=== PATIENT | female | born 1950 | race Caucasian/White ===

== ENCOUNTER → 2020-04-22 08:20 | Outpatient (BNVA) | payer MEDICARE, SELFPAY | PROVIDERS: Family Provider Nurse Practitioner Family; Visit Provider Nurse Practitioner Family | DX: I10 Essential (primary) hypertension (principal); E78.2 Mixed hyperlipidemia; E11.9 Type 2 diabetes mellitus without complications; E07.9 Disorder of thyroid, unspecified | CPT/HCPCS: 80053; 80061; 81001; 83036; 84443; 85025 ==

== ENCOUNTER → 2020-08-31 09:10 | Outpatient (BNVA) | payer MEDICARE, SELFPAY | PROVIDERS: Family Provider Nurse Practitioner Family; PCP Nurse Practitioner Family; Visit Provider Nurse Practitioner Family | DX: E11.9 Type 2 diabetes mellitus without complications (principal); I10 Essential (primary) hypertension; Z00.00 Encounter for general adult medical examination without abnormal findings | CPT/HCPCS: 80053; 83036; 85025 ==

== ENCOUNTER 2020-10-05 10:07 | Outpatient (CLI) | payer MEDICARE, SELFPAY ==
--- NOTE | 2020-10-05 10:13 | MM_ITS ---
WS: [id number] Bilateral screening digital mammogram, 10/05/2020 Clinical Data: SCREENING Comparison: 02/25/2019, 09/01/2016, 03/17/2015, 10/24/2012, 06/06/2011, 11/01/2010, 02/09/2009, 01/21/2008, . Findings: The breast parenchymal pattern shows fibroglandular tissue No spiculated masses or clustered calcific ations are seen. There are no secondary signs of carcinoma. MM/[id number] Impression: 1. Negative bilateral mammogram unchanged. 2. Recommend annual screening mammograms. BIRADS: 1-Negative FOLLOW UP: 1 Year Follow-up The CAD weight checker was used.
== END 2020-10-05 10:08 | disposition home or self-care (01) ==
LOC: RADSHAW 10:11
PROVIDERS: PCP Nurse Practitioner Family; Visit Provider Nurse Practitioner Family
DX: Z12.31 Encounter for screening mammogram for malignant neoplasm of breast (principal)
CPT/HCPCS: 77067

== ENCOUNTER → 2021-08-29 10:00 | Outpatient (BNVA) | payer MEDICARE, SELFPAY | PROVIDERS: PCP Nurse Practitioner Family; Visit Provider Nurse Practitioner Family | DX: E55.9 Vitamin D deficiency, unspecified (principal); E78.2 Mixed hyperlipidemia; I10 Essential (primary) hypertension; E11.9 Type 2 diabetes mellitus without complications | CPT/HCPCS: 80053; 80061; 81003; 82306; 83036; 84443; 85025 ==

== ENCOUNTER → 2021-09-11 11:00 | Outpatient (BNVA) | payer MEDICARE, SELFPAY | PROVIDERS: PCP Nurse Practitioner Family; Visit Provider Registered Nurse Neonatal Intensive Care | DX: N39.0 Urinary tract infection, site not specified (principal) | CPT/HCPCS: 81000 ==

== ENCOUNTER 2021-11-09 13:11 | Outpatient (CLI) | payer MEDICARE, SELFPAY ==
--- NOTE | 2021-11-09 13:30 | MM_ITS ---
WS: [id number] BILATERAL DIGITAL SCREENING MAMMOGRAPHY WITH CAD CLINICAL INFORMATION: Z12.31 - Encounter for screening mammogram for malignant ... HISTORY: Screening mammogram. Left breast soreness COMPARISON: October 05, 2020 TECHNIQUE: Bilateral CC and MLO views. FINDINGS: Scattered fibroglandular densities bilaterally. Biopsy marker left breast. Long-term stability 4 mm o void nodule subareolar left breast. No suspicious focal mass, asymmetry, calcifications, or network architect manager ural distortion. No evidence of malignancy. MM/[id number] IMPRESSION: BI-RADS: 2-Benign FOLLOW UP: 1 Year Follow-up Recommend return to annual screening mammography.
== END 2021-11-09 13:12 | disposition home or self-care (01) ==
LOC: RADSHAW 13:19
PROVIDERS: PCP Nurse Practitioner Family; Visit Provider Nurse Practitioner Family
DX: Z12.31 Encounter for screening mammogram for malignant neoplasm of breast (principal)
CPT/HCPCS: 77067

== ENCOUNTER → 2022-04-11 10:57 | Outpatient (BNVA) | payer MEDICARE, SELFPAY | PROVIDERS: PCP Nurse Practitioner Family; Visit Provider Nurse Practitioner | DX: K59.00 Constipation, unspecified (principal) | CPT/HCPCS: 74018 ==

== ENCOUNTER 2022-07-25 09:31 | Outpatient (CLI) | payer MEDICARE, SELFPAY ==
--- NOTE | 2022-07-25 10:00 | US_ITS ---
WS: [id number] Complete ABDOMINAL ULTRASOUND HISTORY: R10.9 - Unspecified abdominal pain COMPARISON: None available. Liver: 15.1 cm in length. Liver is normal size and echogenicity with no mass or intrahepatic dilatati on. Portal Vein: Normal hepatopetal flow with monophasic waveform. Gallbladder: Normally distended with no gallstones, wall thickening or pericholecystic fluid. Gallbladder wall thickness: 0.2 cm. Pancreas: Normal size and echogenicity. CBD: 0.5 cm. Right kidney: 9.8 cm x 5.4 cm x 4.0 cm. No mass, cortical thickening or hydronephrosis. 3 tiny amoun t of fluid in the central renal pelvis. Not considered hydronephrosis. Left kidney: 9.2 cm x 4.4 cm x 3.8 cm. No mass, cortical thickening or hydronephrosis. Spleen: Normal size and echogenicity. Abdominal aorta and IVC are within normal limits. No ascites. US/US abdomen complete* [id number] IMPRESSION: Normal complete abdomen ultrasound.
== END 2022-07-25 09:32 | disposition home or self-care (01) ==
LOC: RAD 09:32
PROVIDERS: PCP Nurse Practitioner Family; Visit Provider Nurse Practitioner
DX: R16.0 Hepatomegaly, not elsewhere classified (principal)
CPT/HCPCS: 76700

== ENCOUNTER 2022-08-28 18:25 | Observation (INO) | payer MEDICARE, SELFPAY ==
[2022-08-28 18:56] VITALS: BP 125/64; PULSE 73; RESP 16; TEMP 36.3; O2SAT 94
--- NOTE | 2022-08-28 19:58 | XRR_ITS ---
PROCEDURE INFORMATION: Exam: XR Chest Exam date and time: 08/28/2022 8:04 PM Age: 72 years old Clinical indication: Other: HTN TECHNIQUE: Imaging protocol: Radiologic exam of the chest. Views: 1 view. COMPARISON: CR XR chest 2V* [id number] 12/17/2015 3:48 PM FINDINGS: Lungs: The lungs are clear. Pleural spaces: Unremarkable. No pleural effusion. No pneumothorax. Heart/Mediastinum: Unremarkable. No cardiomegaly. Bones/joints: There is a chronic moderate thoracolumbar scoliosis. XR/XR chest 1V portable [id number] IMPRESSION: No change, lungs clear
[2022-08-28 20:13] LABS: Hematocrit 40.5 % (37.0-47.0); Hemoglobin 12.6 g/dL (11.5-15.3); Mean Corpuscular HGB Conc 31.1 g/dL (30.0-36.0); Mean Corpuscular Hemoglobin 30.4 pg (28.0-34.0); Mean Corpuscular Volume 97.8 fl (81-99); Mean Platelet Volume 9.9 fL (7.4-10.4); Platelet Count 256 10^3/cmm (130-400); Positive M 1; Red Blood Count 4.14 10^6/uL (4.1-5.3)
[2022-08-28 20:17] VITALS: BP 141/95; PULSE 71; RESP 16; O2SAT 94
--- NOTE | 2022-08-28 20:23 | ED_ITS ---
HPI - Recheck/Abnormal Lab/Rx General: Chief Complaint: Recheck/Abnormal Lab/Rx Stated Complaint: Low white blood cell count Time Seen by Provider: 08/28/22 19:53 Source: patient Mode of arrival: ambulatory Limitations: no limitations History of Present Illness: 72-year-old female who states she had her labs drawn today for a routine checkup. She states she was called back and told that she had a white count of 78 and told to come the ER states she has been feeling pretty normal some slight weakness no history of cancer she denies any vomiting or diarrhea denies any pain. No history of a leukocytosis in the past. Review of Systems Const: Denies: fever(s), chills, body aches or change in appetite Eyes: Denies: blurry vision or eye discomfort ENMT: Denies: throat pain or dental pain Card: Denies: chest pain Resp: Denies: dyspnea GI: Denies: abdominal pain, nausea, vomiting or diarrhea : Denies: dysuria Musc: Denies: neck pain or back pain Skin/Breast: Denies: rash Neuro: Denies: headache(s) Psych: Denies: depression Fortino/Lymph: Denies: easy bruising All/Imm: Denies: urticaria PFSH ED PFSH: Medical History Anxiety and depression Breast cancer screening by mammogram Colon cancer screening COPD (chronic obstructive pulmonary disease) 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 This causes her pain. Diabetes Essential hypertension Influenza vaccine needed Mixed hyperlipidemia Vitamin D deficiency Social History Smoking and tobacco status: never smoked Second hand smoke exposure: No Physical Exam Const: COMMON NORMALS: no acute distress, patient oriented x3 and healthy appearing HENMT: COMMON NORMALS: normocephalic and atraumatic HEAD & SCALP: normocephalic and atraumatic Eye: COMMON NORMALS: Equal, round and reactive pupils present and EOMs intact bilaterally PUPIL: Yes Equal, round and reactive pupils present Neck/C-Spine: COMMON NORMALS: full ROM and supple Chest: COMMONS NORMALS: normal inspection of the chest and normal palpation of entire chest wall Resp: COMMON NORMALS: normal respiratory effort, No retractions, No use of accessory muscles and clear to auscultation bilaterally AUSCULTATION: clear to auscultation bilaterally Cardio: COMMON NORMALS: regular rate, regular rhythm and No murmurs present (Cardio) RATE: regular rate RHYTHM: regular rhythm GI: COMMON NORMALS: Normal to inspection, nondistended, normoactive bowel sounds present, Soft to palpation, non-tender and no masses PALPATION: Yes Soft to palpation Extremity: COMMON NORMALS: normal to inspection and full ROM Neuro: COMMON NORMALS: patient oriented x3, moves all extremities and no focal motor deficits Psych: COMMON NORMALS: mental status grossly normal, Normal thought process present and cooperative THOUGHT PROCESS: Normal thought process present Skin: COMMON NORMALS: no rashes or lesions noted and no wounds GENERAL SKIN EXAM: no rashes or lesions noted Course Vital Signs: Vital signs: Vital Signs Temperature 97.4 F L 08/28/22 18:56 Pulse Rate 61 08/28/22 21:01 Respiratory Rate 18 08/28/22 21:01 Blood Pressure 124/64 08/28/22 21:01 Pulse Oximetry 95 08/28/22 21:01 Oxygen Delivery Me thod 08/28/22 18:56 MDM - Recheck/Abnormal Lab/Rx Medical Decision Making Patient presents here with leukocytosis is quite severe in nature worried possible CML patient is well-appearing here fairly symptomatic spoke to hospitalist will admit for observation for peripheral smear and further work-up. Lab Data : 08/28/22 20:00 08/28/22 20:00 Radiology Impressions Chest X-Ray 08/28/22 19:58 IMPRESSION: No change, lungs clear Laboratory Results WBC 76.4 10^3/uL (4.0-10.0) H* 08/28/22 20:00 RBC 4.14 10^6/uL (4.1-5.3) 08/28/22 20:00 Hgb 12.6 g/dL (11.5-15.3) 08/28/22 20:00 Hct 40.5 % (37.0-47.0) 08/28/22 20:00 MCV 97.8 fl (81-99) 08/28/22 20:00 MCH 30.4 pg (28.0-34.0) 08/28/22 20:00 MCHC 31.1 g/dL (30.0-36.0) 08/28/22 20:00 RDW 13.0 % (12.1-15.1) 08/28/22 20:00 Plt Count 256 10^3/cmm (130-400) 08/28/22 20:00 MPV 9.9 fL (7.4-10.4) 08/28/22 20:00 Lymph % (Auto) Not Reportable 08/28/22 20:00 [place] % (Auto) Not Reportable 08/28/22 20:00 Lymph # (Auto) Not Reportable 08/28/22 20:00 [place] # (Auto) Not Reportable 08/28/22 20:00 Total Counted 100 (0-100) 08/28/22 20:00 Atypical Lymphs % 4.0 % (0-5) 08/28/22 20:00 Absolute Neutrophils 6.1 10^3/cmm (1.4-6.5) 08/28/22 20:00 Segmented Neutrophils 8 % 08/28/22 20:00 Abs Segm Neuts (Man) 6.1 10/cmm (1.6-7.1) 08/28/22 20:00 Band Neutrophils 0.0 % 08/28/22 20:00 Abs Band Neuts (Man) 0.0 10^3/cmm (0.0-1.2) 08/28/22 20:00 Absolute Lymphocytes 68.8 10^3/cmm (1.2-3.4) H 08/28/22 20:00 Lymphocytes (Manual) 86 % 08/28/22 20:00 Monocytes (Manual) 2.0 % 08/28/22 20:00 Absolute Monocytes 1.5 10^3/cmm (0.1-0.6) H 08/28/22 20:00 Eosinophils (Manual) 0 % 08/28/22 20:00 Absolute Eosinophils 0.0 10^3/cmm (0.0-0.7) 08/28/22 20:00 Basophils (Manual) 0.0 % 08/28/22 20:00 Absolute Basophils 0.0 10^3/cmm (0.0-0.2) 08/28/22 20:00 Smudge Cells 2+ H 08/28/22 20:00 Platelet Estimate Normal (Normal) 08/28/22 20:00 PT 13.30 SECONDS (12.1-14.9) 08/28/22 20:00 INR 0.99 (0.8-1.2) 08/28/22 20:00 Sodium 136 mmol/L (136-145) 08/28/22 20:00 Potassium 4.1 mmol/L (3.5-5.1) 08/28/22 20:00 Chloride 101 mmol/L (98-107) 08/28/22 20:00 Carbon Dioxide 24 mmol/L (22-29) 08/28/22 20:00 Anion Gap 15.1 (5-19) 08/28/22 20:00 BUN 22 mg/dL (8-23) 08/28/22 20:00 Creatinine 0.8 mg/dL (0.5-0.9) 08/28/22 20:00 GFR Calculation Not Reportable 08/28/22 20:00 Glucose 147 mg/dL (65-115) H 08/28/22 20:00 Calculated Osmolality 288 mOsm/kg (285-295) 08/28/22 20:00 Calcium 9.3 mg/dL (8.5-10.5) 08/28/22 20:00 Total Bilirubin 0.2 mg/dL (0.15-1.2) 08/28/22 20:00 AST 15 U/L (0-32) 08/28/22 20:00 ALT 17 U/L (0-33) 08/28/22 20:00 Alkaline Phosphatase 79 U/L (35-105) 08/28/22 20:00 Total Protein 6.8 g/dL (6.6-8.7) 08/28/22 20:00 Albumin 3.9 g/dL (3.5-5.2) 08/28/22 20:00 Globulin 2.9 g/dL (1.3-4.6) 08/28/22 20:00 Discharge Plan Discharge Patient Disposition: Placed in Observation Clinical Impression: Leukocytosis Condition: Stable Prescriptions: No Action albuterol sulfate 90 mcg/actuation HFA aerosol inhaler INHALATION (DME) blood-glucose meter Kit See Rx Instructions .Route Qty: 30 11RF Rx Instructions: As directed (DME) blood sugar diagnostic Strip See Rx Instructions .ROUTE .MEDSUPPLY Qty: 50 5RF Rx Instructions: As directed lisinopril 10 mg tablet See Rx Instructions .ROUTE .COMPLEX Qty: 90 3RF Dose Instruction: Take 1 tablet by mouth once daily Rx Instructions: Take 1 tablet by mouth once daily citalopram 20 mg tablet See Rx Instructions .ROUTE .COMPLEX Qty: 90 2RF Dose Instruction: TAKE 1 TABLET BY MOUTH ONCE DAILY FOR 90 DAYS. TAKE WITH 10 MG TABLET FOR 30 MG DAILY DOSING. Rx Instructions: TAKE 1 TABLET BY MOUTH ONCE DAILY FOR 90 DAYS. TAKE WITH 10 MG TABLET FOR 30 MG DAILY DOSING. pravastatin 40 mg tablet See Rx Instructions .ROUTE .COMPLEX Qty: 90 1RF Dose Instruction: Take 1 tablet by mouth once daily Rx Instructions: Take 1 tablet by mouth once daily citalopram 10 mg tablet See Rx Instructions .ROUTE .COMPLEX Qty: 90 1RF Dose Instruction: TAKE 1 TABLET BY MOUTH ONCE DAILY FOR 90 DAYS. TAKE WITH 20 MG FOR 30 MG DOSING. Rx Instructions: TAKE 1 TABLET BY MOUTH ONCE DAILY FOR 90 DAYS. TAKE WITH 20 MG FOR 30 MG DOSI NG. metformin 850 mg tablet See Rx Instructions .ROUTE .COMPLEX Qty: 180 1RF Dose Instruction: Take 2 tablets by mouth once daily Rx Instructions: Take 2 tablets by mouth once daily Coding Level of Care Code ED Supervisor Cereal for [facility] Fwd Exam Comprehensive
[2022-08-28 20:32] LABS: INR 0.99 (0.8-1.2)
[2022-08-28 20:37] LABS: Alanine Aminotransferase 17 U/L (0-33); Albumin Level 3.9 g/dL (3.5-5.2); Alkaline Phosphatase 79 U/L (35-105); Anion Gap 15.1 (5-19); Aspartate Amino Transferase 15 U/L (0-32); Blood Urea Nitrogen 22 mg/dL (8-23); Calcium 9.3 mg/dL (8.5-10.5); Carbon Dioxide 24 mmol/L (22-29); Chloride 101 mmol/L (98-107); Globulin 2.9 g/dL (1.3-4.6); Glucose 147 mg/dL (65-115); Osmolality Calculated 288 mOsm/kg (285-295); Potassium 4.1 mmol/L (3.5-5.1); Sodium 136 mmol/L (136-145); Total Bilirubin 0.2 mg/dL (0.15-1.2); Total Protein 6.8 g/dL (6.6-8.7)
[2022-08-28 21:01] VITALS: BP 124/64; PULSE 61; RESP 18; O2SAT 95
[2022-08-28 21:25] LABS: Platelet Estimate Normal (Normal)
[2022-08-28 21:26] LABS: Absolute Neutrophil 6.1 10^3/cmm (1.4-6.5); Absolute Segmented Neutrophil 6.1 10/cmm (1.6-7.1); Eosinophils 0 %; Lymphocytes 86 %; Monocytes Absolute 1.5 10^3/cmm (0.1-0.6); Segmented Neutrophils 8 %; Smudge Cells 2+; Total Cells Counted 100 (0-100)
[2022-08-28 21:27] LABS: Lymphocytes Absolute 68.8 10^3/cmm (1.2-3.4)
[2022-08-28 21:34] LABS: White Blood Count 76.4 10^3/uL (4.0-10.0)
[2022-08-28 21:42] LABS: Bilirubin Urine Negative (Negative); Blood Urine Moderate (Negative); Glucose Urine UA Negative (Normal); Ketones Urine Negative (Negative); Leukocyte Esterase Urine Negative (Negative); Nitrate Urine Negative; Protein Urine Negative (Negative); Urine Appearance Clear (CLEAR); Urine Color Yellow (Yellow); Urobilinogen Urine 0.2 mg/dL (Negative); pH Urine 5.5 (5-7)
[2022-08-28 21:49] LABS: Add Urine Microscopic? YES
[2022-08-28 22:19] VITALS: BP 126/80; PULSE 59; RESP 16; O2SAT 98
[2022-08-28 22:29] LABS: Add Urine Culture? No; Bacteria Urine TRACE /hpf; Squamous Epithelial Cell Urine 0-4 /hpf (0-5); WBC Urine 0-4 /hpf (0-5)
[2022-08-28 22:32] LABS: Lactate (Lactic Acid level) 1.9 mmol/L (0.5-2.2)
[2022-08-28 22:35] VITALS: BP 130/76; PULSE 59; RESP 17; TEMP 35.9; O2SAT 95
[2022-08-28 22:41] VITALS: BMI 28.6
[2022-08-28 23:53] VITALS: BP 104/58; PULSE 59; RESP 17; O2SAT 95
--- NOTE | 2022-08-29 01:30 | PM.HP ---
Providers/Chief Complaint Admitting Physician: Alia Mari MD Chief Complaint: High White Cell Count History of Present Illness Zoraida Dia is a 72 year old female with PMH COPD, does not use inhalers, HTN sent from PCP's office due to elevated WBC count. Patient had routine blood work today for her annual physcal which showed WBC count >70,000. Patient reports feeling asymptomatic overall. Denies any fever, chills, weight loss,change in appetite or night sweats. Her recently dies from leukemia, so she states she may not have been paying attention to her symptoms. No c/o recent URIs. No c/o chest pain, dyspnea, palpitations, abdominal pain, nausea or vomiting. She had abdominal pain in June which she thought was related to constipation. Abdomen x rays ruled out obstruction. Hepatomegaly was noted for which f/up US was performed and returned normal. Symptoms are now resolved. she has never had a colonoscopy. Gets scheduled mammograms due to family h/o breast cancer. no personal history of malignancy. She has not noted any LAD. Review of Systems General: Reports: 10 or more systems reviewed and unremarkable except in HPI and below Const: Denies: fever(s), chills or body aches Eyes: Denies: change in vision, blurry vision or photophobia ENMT: Reports: hoarseness; Denies: throat pain, enlarged tonsils, odynophagia or nasal congestion Card: Denies: chest pain, palpitations, irregular heart rhythm, edema, swelling of feet/ankles, lightheadedness, pre-syncope, dyspnea on exertion or orthopnea Resp: Denies: dyspnea, productive cough, non-productive cough, wheezing, stridor, pain on inspiration, change in phlegm color, hemoptysis or chest congestion GI: Denies: abdominal pain, nausea, vomiting, hematemesis, coffee ground emesis, dysphagia, heartburn, diarrhea, constipation, GI cramping, change in stool character, hematochezia or melena : Denies: flank pain, difficulty voiding, dysuria, urinary frequency, urinary urgency, urinary hesitancy or hematuria Musc: Denies: neck pain, back pain, extremity pain, joint swelling, joint warmth or deformity Neuro: Denies: headache(s), numbness in extremities, weakness in extremities, sensory changes, difficulty walking, frequent falls, dizziness, vertigo, behavioral changes, Slurred speech present or seizure-like activity Psych: Denies: anxiety, depression, suicidal ideation or homicidal ideation Endo: Denies: polyuria, polydipsia, tired all the time, cold intolerance or hot flashes Fortino/Lymph: Denies: easy bruising or easy bleeding Medications/Allergies Home Medications Medication Instructions Recorded Confirmed Last Taken Type blood sugar diagnostic #50 ea 08/05/20 08/29/22 Unknown Rx blood-glucose meter #30 ea 08/31/21 08/29/22 Unknown Rx citalopram 20 mg tablet (Celexa) 20 mg PO DAILY 08/29/22 08/29/22 08/28/22 10:00 History lisinopril 10 mg tablet 10 mg PO DAILY 08/29/22 08/29/22 08/28/22 10:00 History metformin 850 mg tablet 850 mg PO BID 08/29/22 08/29/22 08/28/22 18:00 History Allergies Allergy/AdvReac Type Severity Reaction Status Date / Time loratadine [From Claritin] AdvReac sleeplessne Verified 08/28/22 19:03 ss PFSH Acute PFSH: Medical History Anxiety and depression Breast cancer screening by mammogram Colon cancer screening COPD (chronic obstructive pulmonary disease) 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 This causes her pain. Diabetes Essential hypertension Influenza vaccine needed Mixed hyperlipidemia Vitamin D deficiency Social History Smoking and tobacco status: never smoked Second hand smoke exposure: No Vitals/I&O/Wt Last Vital Signs Temp 96.7 F L 08/28/22 22:35 Pulse 59 L 08/28/22 23:53 Resp 17 08/28/22 23:53 BP 104/58 08/28/22 23:53 Pulse Ox 95 08/28/22 23:53 O2 Del Method 08/28/22 22:41 Weight last 48 hrs Weight 75.75 kg Physical Exam Narrative: General: No acute distress, AO x3 HEENT: PERRLA, pupils bilaterally equal and reactive, pallors not present. Left cervical chain 2-3 lymph nodes palpable approx 1 cm. Chest: Normal vesicular breath sounds, no added sounds, equal good air entry bilaterally CVS: S1-S2 regular, no murmurs, no tachycardia, no gallops, no rubs Abdomen: Soft, nontender, no organomegaly, bowel sounds present Neuro: No focal deficits, no facial deformity, AO x3, power 5/5 in all limbs Extremities: no pedal edema or clubbing. Data : 08/28/22 20:00 08/29/22 05:07 Micro: Microbiology 08/28/22 22:02 Blood Culture - Preliminary Blood SPECIMEN COLLECTED 08/28/22 22:02 Blood Culture - Preliminary Blood SPECIMEN COLLECTED A&P Assessment and plan (1) Atypical lymphocytosis: Patient with incidentally noted elevated WBC count at >70,000 with no prior h/o hematological malignancy. She is asymptomatic. denies any recent c/o fever, chills, URI type symptoms Less likely to be viral process such as EBV, CMV, however will check serologies. On automated differential, 69.9% absolute lymphocytosis with 2+ smudge cells. Suspect hematological malignancy such as CLL vs B cell lymphoma. Check peripheral smear and peripheral blood flow cytomtery. From one year ago in 08/2021, WBC count was at 28.5 To be discussed with hem/onc in am regarding other expedited w/up including BM aspirate, imaging- CT vs PET/CT Plan Continue home medications incl metformin and lisinopril Attestations Medical Necessity Statement*: less than 2 midnight stay for evaluation of asymptomtic lymphocytosis , possible hematological malignancy Coding Level of Care Code Acute Vessel [place] for [facility] Fwd Diagnoses Atypical lymphocytosis D72.820
[2022-08-29 04:00] VITALS: BP 94/55; PULSE 54; RESP 17; TEMP 36.6; O2SAT 95
[2022-08-29 04:50] LABS: LAB Peripheral Smear Sent for Review
[2022-08-29 05:48] LABS: Alanine Aminotransferase 18 U/L (0-33); Albumin Level 3.9 g/dL (3.5-5.2); Alkaline Phosphatase 71 U/L (35-105); Anion Gap 13.8 (5-19); Aspartate Amino Transferase 13 U/L (0-32); Blood Urea Nitrogen 18 mg/dL (8-23); Calcium 9.4 mg/dL (8.5-10.5); Carbon Dioxide 28 mmol/L (22-29); Chloride 103 mmol/L (98-107); Globulin 2.5 g/dL (1.3-4.6); Glucose 114 mg/dL (65-115); Osmolality Calculated 293 mOsm/kg (285-295); Potassium 4.8 mmol/L (3.5-5.1); Sodium 140 mmol/L (136-145); Total Bilirubin 0.4 mg/dL (0.15-1.2); Total Protein 6.4 g/dL (6.6-8.7)
[2022-08-29 05:53] LABS: Monoscreen Negative (Negative)
[2022-08-29 07:49] VITALS: BP 106/52; PULSE 55; RESP 14; TEMP 36.7; O2SAT 94
[2022-08-29] MEDS: pantoprazole DR 40 mg Tablet PO (08:04)
--- NOTE | 2022-08-29 11:06 | PC.CHAP ---
Pastoral Care Encounter/Spiritual Assessment Type of Contact [] Declined questioned documents examiner visit [] Patient/Family/Request visit [] Outpatient visit [] Follow-up visit [] Physician referral [] Code/Alert [x] Routine visit [] Staff referral [] Actively dying [] Patient sleeping [] Family support [] [] Out of room [] Palliative care [] [] Receiving care in room [] Pre-surgical visit [] Trauma [] Long length of stay [] ICU visit [] Other: Relational/Emotional Strength [x] Patient feels connected with others/family/visitors/staff [] Distress [] Loneliness/isolation [] Abandonment Spirituality of Patient []x Person of Dorinda [x] Attends Congregation of their Dorinda [x] Believes in Prayer [] Reads Bible or Yazidi materials [] There are Spiritual issues to be addressed 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 Interventions [x] Prayer [x] Active listening [] Non-anxious presence [x] Spiritual/emotional support [] Crisis/trauma care [] Spiritual counseling [] Bereavement support [] Provided bereavement packet [] Provided Bible/devotional materials [] Provided toy/stuffed animal, coloring book to patient or family member [] Provided Communion [] Anointing/[place] [] Salvation [x] Completed spiritual assessment [] Other: Impact on Illness or Injury [] Angry [] Fearful [] Anxious [] Often cries [] Exhaustion [] Unable to work [] Unable to attend presybeterian [] Unable to walk/stand [] Unable to read [] Unable to drive [] Unable to eat/drink [] Unable to sleep [] Unable to be with family [] Patient intubated [] Other: Summary Time spent with patient 10 min
[2022-08-29 11:53] VITALS: BP 135/76; PULSE 59; RESP 16; TEMP 36.6; O2SAT 94
--- NOTE | 2022-08-29 12:28 | P.DS_ITS ---
Discharge Providers Date of Admission: 08/28/22 22:41 Date of Discharge: August 29, 2022 Attending Provider at Admission: Alia Mari MD Attending Provider at Discharge: Moses You MD Diagnoses at Discharge Discharge Diagnosis (1) Atypical lymphocytosis: Status: Acute Reason for Visit Reason for Visit: High White Cell Count Hospital Course Hospital Course Zoraida Dia is a 72 year old female with PMH COPD, does not use inhalers, HTN sent from PCP's office due to elevated WBC count. Patient had routine blood work today for her annual physcal which showed WBC count >70,000. Patient reports feeling asymptomatic overall. Denies any fever, chills, weight loss,change in appetite or night sweats. Her recently from leukemia, so she states she may not have been paying attention to her symptoms. No c/o recent URIs. No c/o chest pain, dyspnea, palpitations, abdominal pain, nausea or vomiting. S he had abdominal pain in June which she thought was related to constipation. Abdomen x rays ruled out obstruction. Hepatomegaly was noted for which f/up US was performed and returned normal. Symptoms are now resolved. she has never had a colonoscopy. Gets scheduled mammograms due to family h/o breast cancer. no personal history of malignancy. She has not noted any LAD. Patient was admitted for further evaluation and management. Flow cytometry for leukemia lymphoma along with serology for CMV and EBV were sent out. Care were discussed in detail with oncology. As patient's hemoglobin and platelet count has remained stable she has been discharged hemodynamically stable condition after specific blood work has been sent out with advised to follow-up with oncology as an outpatient. Care were discussed in detail with the patient and she was agreeable. Physical Exam Narrative: General: No acute distress, AO x3 HEENT: PERRLA, pupils bilaterally equal and reactive, pallors not present. Left cervical chain 2-3 lymph nodes palpable approx 1 cm. Chest: Normal vesicular breath sounds, no added sounds, equal good air entry bilaterally CVS: S1-S2 regular, no murmurs, no tachycardia, no gallops, no rubs Abdomen: Soft, nontender, no organomegaly, bowel sounds present Neuro: No focal deficits, no facial deformity, AO x3, power 5/5 in all limbs Extremities: no pedal edema or clubbing. Discharge Data Studies Completed and Pending Completed Studies During Hospitalization Category Date Time Status CXRP [XR chest 1V portable [id number]] Stat Exams 08/28/22 19:58 Completed Pending at discharge Category Date Time Status Blood Culture Stat Lab 08/28/22 22:02 Results CMV IGG&IGM Panel Routine Lab 08/29/22 05:07 Received Complete Blood Count w/Auto AM LABS Lab 08/30/22 04:00 Ordered EBV IGG & IGM Routine Lab 08/29/22 05:07 Received Radiology Impressions Chest X-Ray 08/28/22 19:58 IMPRESSION: No change, lungs clear Laboratory Results WBC 76.4 10^3/uL (4.0-10.0) H* 08/28/22 20:00 RBC 4.14 10^6/uL (4.1-5.3) 08/28/22 20:00 Hgb 12.6 g/dL (11.5-15.3) 08/28/22 20:00 Hct 40.5 % (37.0-47.0) 08/28/22 20:00 MCV 97.8 fl (81-99) 08/28/22 20:00 MCH 30.4 pg (28.0-34.0) 08/28/22 20:00 MCHC 31.1 g/dL (30.0-36.0) 08/28/22 20:00 RDW 13.0 % (12.1-15.1) 08/28/22 20:00 Plt Count 256 10^3/cmm (130-400) 08/28/22 20:00 MPV 9.9 fL (7.4-10.4) 08/28/22 20:00 Lymph % (Auto) Not Reportable 08/28/22 20:00 [place] % (Auto) Not Reportable 08/28/22 20:00 Lymph # (Auto) Not Reportable 08/28/22 20:00 [place] # (Auto) Not Reportable 08/28/22 20:00 Total Counted 100 (0-100) 08/28/22 20:00 Atypical Lymphs % 4.0 % (0-5) 08/28/22 20:00 Absolute Neutrophils 6.1 10^3/cmm (1.4-6.5) 08/28/22 20:00 Segmented Neutrophils 8 % 08/28/22 20:00 Abs Segm Neuts (Man) 6.1 10/cmm (1.6-7.1) 08/28/22 20:00 Band Neutrophils 0.0 % 08/28/22 20:00 Abs Band Neuts (Man) 0.0 10^3/cmm (0.0-1.2) 08/28/22 20:00 Absolute Lymphocytes 68.8 10^3/cmm (1.2-3.4) H 08/28/22 20:00 Lymphocytes (Manual) 86 % 08/28/22 20:00 Monocytes (Manual) 2.0 % 08/28/22 20:00 Absolute Monocytes 1.5 10^3/cmm (0.1-0.6) H 08/28/22 20:00 Eosinophils (Manual) 0 % 08/28/22 20:00 Absolute Eosinophils 0.0 10^3/cmm (0.0-0.7) 08/28/22 20:00 Basophils (Manual) 0.0 % 08/28/22 20:00 Absolute Basophils 0.0 10^3/cmm (0.0-0.2) 08/28/22 20:00 Smudge Cells 2+ H 08/28/22 20:00 Platelet Estimate Normal (Normal) 08/28/22 20:00 PT 13.30 SECONDS (12.1-14.9) 08/28/22 20:00 INR 0.99 (0.8-1.2) 08/28/22 20:00 Sodium 140 mmol/L (136-145) 08/29/22 05:07 Potassium 4.8 mmol/L (3.5-5.1) 08/29/22 05:07 Chloride 103 mmol/L (98-107) 08/29/22 05:07 Carbon Dioxide 28 mmol/L (22-29) 08/29/22 05:07 Anion Gap 13.8 (5-19) 08/29/22 05:07 BUN 18 mg/dL (8-23) 08/29/22 05:07 Creatinine 0.8 mg/dL (0.5-0.9) 08/29/22 05:07 GFR Calculation Not Reportable 08/29/22 05:07 Glucose 114 mg/dL (65-115) 08/29/22 05:07 Calculated Osmolality 293 mOsm/kg (285-295) 08/29/22 05:07 Lactate 1.9 mmol/L (0.5-2.2) 08/28/22 22:04 Calcium 9.4 mg/dL (8.5-10.5) 08/29/22 05:07 Total Bilirubin 0.4 mg/dL (0.15-1.2) 08/29/22 05:07 AST 13 U/L (0-32) 08/29/22 05:07 ALT 18 U/L (0-33) 08/29/22 05:07 Alkaline Phosphatase 71 U/L (35-105) 08/29/22 05:07 Total Protein 6.4 g/dL (6.6-8.7) L 08/29/22 05:07 Albumin 3.9 g/dL (3.5-5.2) 08/29/22 05:07 Globulin 2.5 g/dL (1.3-4.6) 08/29/22 05:07 Urine Color Yellow (Yellow) 08/28/22 20:11 Urine Appearance Clear (CLEAR) 08/28/22 20:11 Urine pH 5.5 (5-7) 08/28/22 20:11 Ur Specific [place] 1.020 (1.005-1.030) 08/28/22 20:11 Urine Protein Negative (Negative) 08/28/22 20:11 Urine Glucose (UA) Negative (Normal) 08/28/22 20:11 Urine Ketones Negative (Negative) 08/28/22 20:11 Urine Blood Moderate (Negative) A 08/28/22 20:11 Urine Nitrate Negative 08/28/22 20:11 Urine Bilirubin Negative (Negative) 08/28/22 20:11 Urine Urobilinogen 0.2 mg/dL (Negative) 08/28/22 20:11 Ur Leukocyte Esterase Negative (Negative) 08/28/22 20:11 Urine RBC 10-15 /hpf (0-2) H 08/28/22 20:11 Urine WBC 0-4 /hpf (0-5) H 08/28/22 20:11 Ur Squamous Epith Cells 0-4 /hpf (0-5) H 08/28/22 20:11 Amorphous Sediment Not Reportable 08/28/22 20:11 Urine Bacteria Trace /hpf (NONE) 08/28/22 20:11 Leuk/Lym Spec Type Cancelled 08/29/22 05:07 Leuk/Lym Clinical Info Cancelled 08/29/22 05:07 Leuk/Lymph Viability Cancelled 08/29/22 05:07 Leuk/Lym Sample Descrip Cancelled 08/29/22 05:07 Leuk/Lym # of Markers Cancelled 08/29/22 05:07 Leuk/Lym Markers Cancelled 08/29/22 05:07 Leuk/Lym Gating Strategy Cancelled 08/29/22 05:07 Leuk/Lym Interpretation Cancelled 08/29/22 05:07 Monoscreen Negative (Negative) 08/29/22 05:07 Vitals Last Vital Signs Temp 97.9 F 08/29/22 11:53 Pulse 59 L 08/29/22 11:53 Resp 16 08/29/22 11:53 BP 135/76 08/29/22 11:53 Pulse Ox 94 08/29/22 11:53 O2 Del Method 08/29/22 11:53 Discharge Plan Discharge Patient Disposition: Home Condition: Stable Prescriptions: New pantoprazole 40 mg Tablet,Delayed Release (Dr/Ec) 40 mg PO DAILY Qty: 30 0RF Continued (DME) blood-glucose meter Kit See Rx Instructions .Route Qty: 30 11RF Rx Instructions: As directed (DME) blood sugar diagnostic Strip See Rx Instructions .ROUTE .MEDSUPPLY Qty: 50 5RF Rx Instructions: As directed metformin 850 mg tablet 850 mg PO BID Celexa 20 mg tablet 20 mg PO DAILY lisinopril 10 mg tablet 10 mg PO DAILY Discharge Orders: Discharge Order (Routine); Ordered 08/29/22 Ordered By: Moses You Referrals: Donell Holley MD [Hospitalist] - 7-10 days Discharge Diet: Cardiac Discharge Activity: Resume usual activity and Increase activity as tolerated Patient Instructions: Opioid Safety Activity Restrictions/Additional Instructions: Please follow-up with Dr. Holley within next 1 week for further evaluation and management for leukocytosis to rule out CLL Discharge Attestations Time Spent in Discharge Care*: greater than 30 min Specific Discharge Activities: educating patient, discussing with pcp/other providers, discussing with case briefer/social workers/dc planners, documenting/other paperwork and evaluating patient/reviewing data Status at Discharge: Cognitive status at discharge: cognitively intact , Behavioral status at discharge: cooperative , Functional status at discharge: independent ambulation , Overall status at discharge: patient is back to baseline Quality Metrics Clinical Quality Measures [ No reported AMI, CVA or VTE this stay] Coding Level of Care Code Acute Chg FW DC note Diagnoses Atypical lymphocytosis D72.820
[2022-08-29 14:48] VITALS: BP 135/76; PULSE 59; RESP 16; TEMP 36.6; O2SAT 94
[2022-08-30 14:13] LABS: Cytomegalovirus Antibody (IGG) <0.60 U/mL; Cytomegalovirus Antibody (IGM) <30.00 AU/mL
[2022-08-31 07:58] LABS: Leukemia Profile (BBPL) See Report; Lymphoma Profile (BBPL) See Report
[2022-08-31 12:52] LABS: EBV IGG TEST >750.00 U/mL; EBV Nuclear AG <18.00 U/mL
== END 2022-08-29 03:00 | disposition home or self-care (01) ==
LOC: ER 21:50 → MEDSURG 23:13
PROVIDERS: Admitting Provider Student in an Organized Health Care Education/Training Program; Emergency Provider Emergency Medicine; Visit Provider Student in an Organized Health Care Education/Training Program
DX: D72.820 Lymphocytosis (symptomatic) (principal); J44.9 Chronic obstructive pulmonary disease, unspecified; I10 Essential (primary) hypertension; E11.9 Type 2 diabetes mellitus without complications; E78.2 Mixed hyperlipidemia; Z79.84 Long term (current) use of oral hypoglycemic drugs
CPT/HCPCS: 36415; 71045; 80053; 80061; 81001; 83036; 83605; 84443; 85007; 85025; 85610; 86308; 86664; 86665; 87040; 88184; 88185; 99285; G0378

== ENCOUNTER → 2022-08-29 04:45 | Outpatient (BNVA) | payer MEDICARE, SELFPAY | PROVIDERS: Family Provider Nurse Practitioner Family; PCP Nurse Practitioner Family; Visit Provider Nurse Practitioner Family | DX: E11.9 Type 2 diabetes mellitus without complications (principal); I10 Essential (primary) hypertension; Z00.00 Encounter for general adult medical examination without abnormal findings | CPT/HCPCS: 80503 ==

== ENCOUNTER 2022-09-07 14:23 | Oncology outpatient (recurring) (ONCR) | payer MEDICARE, SELFPAY | END 2022-09-25 23:59 | disposition home or self-care (01) | PROVIDERS: PCP Nurse Practitioner Family; Visit Provider Internal Medicine Medical Oncology | DX: C91.10 Chronic lymphocytic leukemia of B-cell type not having achieved remission (principal); Z87.891 Personal history of nicotine dependence | CPT/HCPCS: 99204 ==

== ENCOUNTER 2023-01-31 09:45 | Outpatient (CLI) | payer MEDICARE, SELFPAY ==
--- NOTE | 2023-01-31 09:58 | MM_ITS ---
WS: [id number] BILATERAL SCREENING DIGITAL TOMOSYNTHESIS MAMMOGRAM WITH CAD HISTORY: SCREENING COMPARISON: 11/09/2021 and 10/05/2020 Bilateral CC and MLO views with tomosynthesis and synthetic mammography submitted. Computer aided det ection analyzed. Breast composition: There are scattered areas of fibroglandular density. No suspicious masses, microc alcifications or architectural distortion. Benign calcifications LEFT breast. MM/[place] [id number] IMPRESSION: BI-RADS: 2-Benign FOLLOW UP: 1 Year Follow-up
== END 2023-01-31 09:46 | disposition home or self-care (01) ==
PROVIDERS: PCP Nurse Practitioner Family; Visit Provider Nurse Practitioner Family
DX: Z12.31 Encounter for screening mammogram for malignant neoplasm of breast (principal)
CPT/HCPCS: 77063; 77067

== ENCOUNTER → 2023-02-06 11:10 | Outpatient (BNVA) | payer MEDICARE, SELFPAY | PROVIDERS: PCP Nurse Practitioner Family; Visit Provider Nurse Practitioner Family | DX: E11.9 Type 2 diabetes mellitus without complications (principal) | CPT/HCPCS: 83036 ==

== ENCOUNTER 2023-03-26 12:11 | Oncology outpatient (recurring) (ONCR) | payer MEDICARE, SELFPAY ==
[2023-03-26 13:01] LABS: Basophils # 0.1 10^3/uL (0.0-0.1); Basophils % 0.1 %; Eosinophils # 0.2 10^3/uL (0.0-0.8); Eosinophils % 0.1 %; Hematocrit 43.7 % (37.0-47.0); Hemoglobin 13.6 g/dL (11.5-15.3); Lymphocytes % 94.3 %; Mean Corpuscular HGB Conc 31.1 g/dL (30.0-36.0); Mean Corpuscular Hemoglobin 29.6 pg (28.0-34.0); Mean Corpuscular Volume 95.2 fl (81-99); Mean Platelet Volume 9.7 fL (7.4-10.4); Monocytes # 2.6 10^3/uL (0.2-0.9); Monocytes % 1.8 %; Neutrophils # 5.17 10^3/uL (1.8-7.7); Neutrophils % 3.5 %; Nucleated Red Blood Cells % 0 %; Platelet Count 264 10^3/cmm (130-400); Red Blood Count 4.59 10^6/uL (4.1-5.3); Red Cell Distribution Width 13.3 % (12.1-15.1)
[2023-03-26 13:24] LABS: Alanine Aminotransferase 20 U/L (0-33); Albumin Level 4.4 g/dL (3.5-5.2); Alkaline Phosphatase 89 U/L (35-105); Anion Gap 14.8 (5-19); Aspartate Amino Transferase 22 U/L (0-32); Blood Urea Nitrogen 21 mg/dL (8-23); Calcium 10.3 mg/dL (8.5-10.5); Carbon Dioxide 27 mmol/L (22-29); Chloride 99 mmol/L (98-107); Globulin 3.2 g/dL (1.3-4.6); Glucose 95 mg/dL (65-115); Lactate Dehydrogenase 197 U/L (135-214); Osmolality Calculated 285 mOsm/kg (285-295); Potassium 4.8 mmol/L (3.5-5.1); Sodium 136 mmol/L (136-145); Total Bilirubin 0.2 mg/dL (0.15-1.2); Total Protein 7.6 g/dL (6.6-8.7)
[2023-03-26 13:51] LABS: LAB Peripheral Smear Sent for Review
[2023-03-26 14:01] LABS: Lymphocytes # 138.3 10^3/uL (0.8-4.8)
[2023-03-26 14:03] LABS: Slide Review Slide Review Perform; White Blood Count 146.6 10^3/uL (4.0-10.0)
[2023-04-05 10:36] LABS: CLL Prognostic Panel (BBPL) See Report
== END 2023-04-25 23:59 | disposition home or self-care (01) ==
PROVIDERS: PCP Nurse Practitioner Family; Visit Provider Internal Medicine Medical Oncology
DX: C91.10 Chronic lymphocytic leukemia of B-cell type not having achieved remission (principal); Z87.891 Personal history of nicotine dependence
CPT/HCPCS: 36415; 80053; 81263; 82232; 83615; 85025; 88185; 88264; 88271; 88367; 88374; 99214

== ENCOUNTER 2023-04-26 06:00 | Outpatient (RCR) | payer MEDICARE, SELFPAY | END 2023-05-25 23:59 | disposition home or self-care (01) | LOC: WPT 06:00 | PROVIDERS: PCP Nurse Practitioner Family; Visit Provider Nurse Practitioner | DX: M65.2 Calcific tendinitis (principal) | CPT/HCPCS: 97110; 97112; 97161; 97530 ==

== ENCOUNTER → 2023-05-03 10:42 | Outpatient (BNVA) | payer MEDICARE, SELFPAY | PROVIDERS: PCP Nurse Practitioner Family; Visit Provider Nurse Practitioner | DX: M25.512 Pain in left shoulder (principal) | CPT/HCPCS: 73030 ==

== ENCOUNTER 2023-05-26 06:00 | Outpatient (RCR) | payer MEDICARE, SELFPAY | END 2023-06-25 23:59 | disposition home or self-care (01) | LOC: WPT 06:00 | PROVIDERS: PCP Nurse Practitioner Family; Visit Provider Nurse Practitioner | DX: M65.2 Calcific tendinitis (principal) | CPT/HCPCS: 97110; 97112; 97140; 97530 ==

== ENCOUNTER 2023-06-26 10:37 | Outpatient (CLI) | payer MEDICARE, SELFPAY ==
--- NOTE | 2023-06-26 12:00 | CT_ITS ---
WS: [id number] CT CHEST, ABDOMEN AND PELVIS WITH CONTRAST HISTORY: Staging leukemia. TECHNIQUE: Contiguous 5 mm axial imaging performed through the chest, abdomen and pelvis with IV cont rast, oral contrast has been provided. Coronal and sagittal reformats chest. Coronal and sagittal ref ormats through the abdomen and pelvis. All CT scans at [facility] use at least one of these d ose optimization techniques: automated exposure control; mA and/or kV adjustment per patient size (in cludes targeted exams where dose is matched to clinical indication); or iterative reconstruction. CONTRAST: Omnipaque 350; 100 mL IV. DLP: 1004.66 mGy.cm COMPARISON: 08/15/[address]: Moderate to severe centrilobular emphysema. 9 mm noncalcified nodule LEFT upper lobe. Mild atherosclerosis aorta. Normal size pulmonary artery. No central filling defects. Normal size heart. N o pericardial or pleural effusion. Bilateral axillary lymphadenopathy. Number and size of the lymph nodes in the LEFT axilla are greater than on the RIGHT. The largest lymph nodes measure 3.4 cm in short axis diameter. RIGHT hilar lymph node is enlarged and rounded measuring up to 1.5 cm in short axis diameter. Additional inferior parat jed lymph nodes and hilar lymph nodes. RIGHT hilar lymph node measures 2.1 cm in diameter. Subcar inal lymph node is enlarged at 1.6 cm. No retrocrural lymph nodes. Abdomen CT: Normal size liver and portal vein. Spleen is not enlarged. Normal gallbladder and adrenal glands. Common bile duct is normal normal pancreas. Mild atherosclerosis aorta. Normal RIGHT kidney. LEFT kidney: Enhancing mass bulging beyond the contour measures 3.0 x 2.9 cm. There is mixed attenuat ion. New mass since 2005. Several small lymph nodes at the GE junction. Celiac axis lymph node 1.6 cm. There is a larger lymph node or lymph node group precaval near the louisa hepatis measuring up to 3.0 cm in diameter. There ar e smaller additional shoddy retroperitoneal lymph nodes with several measuring close to 1.0 cm. No ascites. Normally distended stomach. No small bowel obstruction. No focal wall thickening. Moderate constipati on. Normal appendix. Pelvic CT: Urinary bladder is well distended. Uterus is lobular and lobulated in shape with variable enhancement. Likely representing a fibroid uterus. LEFT adnexal cyst measures 6.3 x 5.2 cm. Inguinal enlarged lymph nodes. The largest is ovoid on the RIGHT measuring 3.6 cm. Smaller lymph nodes measuri ng up to 3.2 cm along the LEFT obturator chain. Distal external iliac lymph nodes and small inguinal lymph nodes. RIGHT curvature lumbar spine. Thoracic scoliosis. No destructive bone lesions. CT/CT chest abdpel w/*[id number] IMPRESSION: 1. Enhancing solid mass LEFT kidney. Concerning for renal cell neoplasm. Mass measures 3.0 x 2.9 cm. 2. Lymphadenopathy within the chest, abdomen and pelvis. 3. Largest groups of abnormal lymph nodes in the axilla, paratracheal, hilar, precaval and inguinal locations. 4. 9 mm contrast noncalcified LEFT upper lobe mass. Recommend follow-up chest CT in 3 months. 5. LEFT ovarian cyst measures 6.3 x 5.2 cm. Recommend transvaginal ultrasound evaluation to characterize for possible solid component.
[2023-06-26] MEDS: iohexol 350 mg/mL 500 mL Btl (per mL) PO (12:08)
[2023-06-26 12:14] LABS: Blood Urea Nitrogen 18 mg/dL (8-23)
[2023-06-26] MEDS: iohexol 350 mg/mL 500 mL Btl (per mL) IV (12:20)
== END 2023-06-26 10:38 | disposition home or self-care (01) ==
PROVIDERS: PCP Nurse Practitioner Family; Visit Provider Internal Medicine Medical Oncology
DX: C91.10 Chronic lymphocytic leukemia of B-cell type not having achieved remission (principal)
CPT/HCPCS: 71260; 74177; 82565; 84520; Q9967

== ENCOUNTER 2023-07-03 10:50 | Oncology outpatient (recurring) (ONCR) | payer MEDICARE, MEDICAID, SELFPAY ==
[2023-07-03 10:56] VITALS: BP 127/74; PULSE 90; RESP 18; TEMP 36.7; O2SAT 94
[2023-07-03 11:09] LABS: Basophils # 0.2 10^3/uL (0.0-0.1); Basophils % 0.1 %; Eosinophils # 0.3 10^3/uL (0.0-0.8); Eosinophils % 0.1 %; Hematocrit 43.4 % (37.0-47.0); Hemoglobin 13.2 g/dL (11.5-15.3); Lymphocytes % 95.6 %; Mean Corpuscular HGB Conc 30.4 g/dL (30.0-36.0); Mean Corpuscular Hemoglobin 29.2 pg (28.0-34.0); Mean Platelet Volume 9.3 fL (7.4-10.4); Monocytes # 2.6 10^3/uL (0.2-0.9); Monocytes % 1.3 %; Neutrophils # 5.47 10^3/uL (1.8-7.7); Neutrophils % 2.8 %; Nucleated Red Blood Cells % 0 %; Platelet Count 264 10^3/cmm (130-400); Red Blood Count 4.52 10^6/uL (4.1-5.3); Red Cell Distribution Width 13.8 % (12.1-15.1)
[2023-07-03 11:41] LABS: Alanine Aminotransferase 19 U/L (0-33); Albumin Level 4.5 g/dL (3.5-5.2); Alkaline Phosphatase 96 U/L (35-105); Anion Gap 16.2 (5-19); Aspartate Amino Transferase 21 U/L (0-32); Blood Urea Nitrogen 22 mg/dL (8-23); Calcium 9.9 mg/dL (8.5-10.5); Carbon Dioxide 25 mmol/L (22-29); Chloride 100 mmol/L (98-107); Globulin 2.9 g/dL (1.3-4.6); Glucose 95 mg/dL (65-115); Osmolality Calculated 285 mOsm/kg (285-295); Potassium 5.2 mmol/L (3.5-5.1); Sodium 136 mmol/L (136-145); Total Bilirubin 0.3 mg/dL (0.15-1.2); Total Protein 7.4 g/dL (6.6-8.7)
[2023-07-03 11:51] LABS: White Blood Count 201.9 10^3/uL (4.0-10.0)
[2023-07-03 11:52] LABS: Lymphocytes # 193.1 10^3/uL (0.8-4.8); Slide Review Slide Review Perform
[2023-07-03 11:55] LABS: Lactate Dehydrogenase 194 U/L (135-214)
[2023-07-03 14:36] LABS: Uric Acid 6.5 mg/dL (2.4-5.7)
== END 2023-07-26 23:59 | disposition home or self-care (01) ==
PROVIDERS: PCP Nurse Practitioner Family; Visit Provider Internal Medicine Medical Oncology
DX: C91.10 Chronic lymphocytic leukemia of B-cell type not having achieved remission (principal); Z87.891 Personal history of nicotine dependence; N28.89 Other specified disorders of kidney and ureter; N83.209 Unspecified ovarian cyst, unspecified side
CPT/HCPCS: 36415; 80053; 83615; 84550; 85025; 99215

== ENCOUNTER 2023-07-19 08:51 | Outpatient (CLI) | payer MEDICARE, MEDICAID, SELFPAY ==
--- NOTE | 2023-07-19 09:30 | US_ITS ---
WS: [id number] US transvaginal [id number] HISTORY: abnormal CT, LEFT ovarian mass. COMPARISON: CT 06/26/2023 Uterus: 8.7 cm x 4.1 cm x 4.3 cm. Anteverted uterus. Marked heterogeneity and variable echogenicity throughout the uterus from fibroids . Endometrium: Endometrium is not visualized well due to distortion from the fibroids. Right ovary: Ovaries not identified. No adnexal mass. Left adnexa: Large cystic mass in the LEFT adnexa with a thin septation. Mass measures 5.9 x 4.9 x 7. 5 cm. No nodularity. A separate ovary is not identified. This mass corresponds to the findings on the recent CT. No free fluid in the cul-de-sac. IMPRESSION: 1. LEFT adnexal cystic mass with thin septation. This is not a simple cyst. O-RADS 2, almost certainl y benign. Recommend follow-up ultrasound in 6 months. MANAGING MANAGER evaluation may be of benefit. 2. Fibroid uterus.
== END 2023-07-19 08:52 | disposition home or self-care (01) ==
PROVIDERS: PCP Nurse Practitioner Family; Visit Provider Internal Medicine Medical Oncology
DX: N83.202 Unspecified ovarian cyst, left side (principal); D25.9 Leiomyoma of uterus, unspecified
CPT/HCPCS: 76830

== ENCOUNTER → 2023-08-01 09:24 | Outpatient (BNVA) | payer MEDICARE, MEDICAID, SELFPAY | PROVIDERS: PCP Nurse Practitioner Family; Visit Provider Internal Medicine Medical Oncology | DX: C91.10 Chronic lymphocytic leukemia of B-cell type not having achieved remission (principal) | CPT/HCPCS: 80053; 83615; 85025 ==

== ENCOUNTER 2023-08-07 09:40 | Oncology outpatient (recurring) (ONCR) | payer MEDICARE, MEDICAID, SELFPAY | END 2023-08-25 23:59 | disposition home or self-care (01) | PROVIDERS: PCP Nurse Practitioner Family; Visit Provider Internal Medicine Medical Oncology | DX: C91.10 Chronic lymphocytic leukemia of B-cell type not having achieved remission (principal) | CPT/HCPCS: 99213 ==

== ENCOUNTER → 2023-08-20 08:34 | Outpatient (BNVA) | payer MEDICARE, MEDICAID, SELFPAY | PROVIDERS: PCP Nurse Practitioner Family; Visit Provider Nurse Practitioner Family | DX: C91.10 Chronic lymphocytic leukemia of B-cell type not having achieved remission (principal); E11.9 Type 2 diabetes mellitus without complications; Z00.00 Encounter for general adult medical examination without abnormal findings | CPT/HCPCS: 80053; 80061; 83036; 84443; 85025 ==

== ENCOUNTER 2023-10-16 14:09 | Oncology outpatient (recurring) (ONCR) | payer MEDICARE, MEDICAID, SELFPAY ==
[2023-10-16 14:15] VITALS: BP 176/73; PULSE 73; RESP 20; TEMP 36.7; O2SAT 92
[2023-10-16 14:37] LABS: Basophils # 0.3 10^3/uL (0.0-0.1); Basophils % 0.1 %; Eosinophils # 0.5 10^3/uL (0.0-0.8); Eosinophils % 0.3 %; Hematocrit 43.9 % (36-47); Lymphocytes % 94.9 %; Mean Corpuscular HGB Conc 29.4 g/dL (30-55); Mean Corpuscular Hemoglobin 29.1 pg (27-33); Mean Corpuscular Volume 99.1 fl (85-98); Mean Platelet Volume 9.5 fL (7.4-10.4); Monocytes # 4.1 10^3/uL (0.2-0.9); Neutrophils # 5.34 10^3/uL (1.8-7.7); Neutrophils % 2.5 %; Nucleated Red Blood Cells % 0 %; Platelet Count 256 10^3/cmm (157-399); Red Blood Count 4.43 10^6/uL (3.85-5.65); Red Cell Distribution Width 14.9 % (12.1-15.1)
[2023-10-16 15:03] LABS: Alanine Aminotransferase 16 U/L (0-33); Albumin Level 4.6 g/dL (3.5-5.2); Alkaline Phosphatase 96 U/L (35-105); Aspartate Amino Transferase 19 U/L (0-32); Blood Urea Nitrogen 22 mg/dL (8-23); Calcium 9.9 mg/dL (8.5-10.5); Carbon Dioxide 25 mmol/L (22-29); Chloride 102 mmol/L (98-107); Globulin 2.7 g/dL (1.3-4.6); Glucose 101 mg/dL (65-115); Osmolality Calculated 289 mOsm/kg (285-295); Sodium 138 mmol/L (136-145); Total Bilirubin 0.2 mg/dL (0.15-1.2); Total Protein 7.3 g/dL (6.6-8.7)
[2023-10-16 15:04] LABS: Anion Gap 16.3 (5-19); Potassium 5.3 mmol/L (3.5-5.1)
[2023-10-16 15:13] LABS: White Blood Count 211.14 10^3/uL (3.29-11.43)
[2023-10-16 15:14] LABS: Lymphocytes # 200.5 10^3/uL (0.8-4.8)
[2023-10-16 15:22] LABS: Slide Review Slide Review Perform
== END 2023-10-25 23:59 | disposition home or self-care (01) ==
PROVIDERS: PCP Nurse Practitioner Family; Visit Provider Internal Medicine Medical Oncology
DX: C91.10 Chronic lymphocytic leukemia of B-cell type not having achieved remission (principal); Z87.891 Personal history of nicotine dependence; N28.89 Other specified disorders of kidney and ureter; N83.209 Unspecified ovarian cyst, unspecified side; Z79.899 Other long term (current) drug therapy
CPT/HCPCS: 36415; 80053; 85025; 99214

== ENCOUNTER 2023-10-30 13:10 | Inpatient (IN) | payer MEDICARE, MEDICAID, SELFPAY ==
[2023-10-30] VITALS (19 sets, daily range): BP systolic 101–185; BP diastolic 52–92; PULSE 67–116; RESP 18–34; TEMP 36.6–36.9; O2SAT 89–97; BMI 30.9
--- NOTE | 2023-10-30 13:15 | XRR_ITS ---
PROCEDURE INFORMATION: Exam: XR Chest Exam date and time: 10/30/2023 1:30 PM Age: 73 years old Clinical indication: Shortness of breath; Additional info: SOB TECHNIQUE: Imaging protocol: Radiologic exam of the chest. Views: 1 view. COMPARISON: CT chest abdpel w/*[id number] 06/26/2023 12:18 PM FINDINGS: Lungs: Mild chronic interstitial fibrosis. No acute infiltrate or effusion. Pleural spaces: Unremarkable. No pleural effusion. No pneumothorax. Heart/Mediastinum: Unremarkable. No cardiomegaly. Bones/joints: Mild S-shaped scoliosis. XR/XR chest 1V portable [id number] IMPRESSION: No acute cardiopulmonary disease.
--- NOTE | 2023-10-30 13:15 | ECG_ITS ---
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 Measurements Intervals Cosmos Rate: 116 P: 0 MI: 0 QRS: 81 QRSD: 86 T: 60 QT: 303 QTc: 421 Interpretive Statements ATRIAL FIBRILLATION WITH RAPID VENTRICULAR RESPONSE NONSPECIFIC ST & T-WAVE ABNORMALITY ABNORMAL RHYTHM ECG Compared to ECG 12/17/2015 16:07:07 T-wave abnormality now present Sinus rhythm no longer present Electronically Signed On 10-30-2023 14:54:18 GRADUATE TEACHER EDUCATION by Emily Sanchez M.D. [email or web address]
--- NOTE | 2023-10-30 13:19 | ED_ITS ---
HPI - Allergic Reaction 2 General: Chief complaint: Allergic Reaction Stated complaint: ALLERGIC REACTION Time Seen by Provider: 10/30/23 13:11 Source: patient Mode of arrival: ambulatory Limitations: no limitations History of Present Illness: HPI narrative: 73-year-old female is here from oncology infusion center she had her first dose of chemo for leukemia and had a rapid response that she started having allergic reaction. States she became pruritic is having shortness of breath patient was given Solu-Medrol with a breathing treatment and epinephrine there and transported to the ER. States she still feels anxious and short of breath but has improvement to her rash. She denies any pain anywhere denies any fevers. 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 This causes her pain. COPD (chronic obstructive pulmonary disease) Mixed hyperlipidemia Essential hypertension Surgical History History of local excision of skin lesion From side of nose, skin cancer Family History Father CAD (coronary artery disease) Other Dementia Diabetes Hyperlipidemia Hypertension Lung disease Denies family history of Clotting disorder Psychiatric illness Chronic kidney disease (CKD) Suicide Anesthesia complication Bleeding disorder Cancer Stroke Social History Smoking and tobacco/nicotine status: former use of tobacco/nicotine Quit status (tobacco/nicotine): has quit using Year quit tobacco: 2006 Former quit date comment: Smoke for 40+ years Second hand smoke exposure: No Physical Exam 2 Const: COMMON NORMALS: patient oriented x3 HENMT: COMMON NORMALS: normocephalic and atraumatic HEAD & SCALP: n ormocephalic and atraumatic Eye: COMMON NORMALS: Equal, round and reactive pupils present and EOMs intact bilaterally PUPIL: Yes Equal, round and reactive pupils present Neck/C-Spine: COMMON NORMALS: full ROM and supple Chest: COMMONS NORMALS: normal inspection of the chest and normal palpation of entire chest wall Resp: COMMON NORMALS: No retractions and No use of accessory muscles EFFORT & INSPECTION: Yes tachypneic AUSCULTATION: wheezes Cardio: COMMON NORMALS: regular rhythm and No murmurs present (Cardio) R ATE: tachycardic RHYTHM: regular rhythm GI: COMMON NORMALS: Normal to inspection, nondistended, normoactive bowel sounds present, Soft to palpation, non-tender and no masses PALPATION: Yes Soft to palpation Extremity: COMMON NORMALS: normal to inspection and full ROM Neuro: COMMON NORMALS: patient oriented x3, moves all extremities and no focal motor deficits Psych: COMMON NORMALS: mental status grossly normal, Normal thought process present and cooperative THOUGHT PROCESS: Normal thought process present Skin: COMMON NORMALS: no rashes or lesions noted and no wounds GENERAL SKIN EXAM: no rashes or lesions noted Course 2 Vital Signs: Vital signs: Vital Signs Temperature 98.4 F 10/30/23 13:08 Pulse Rate 105 H 10/30/23 14:41 Respiratory Rate 34 H 10/30/23 14:07 Blood Pressure 156/92 10/30/23 13:41 Pulse Oximetry 94 10/30/23 14:41 Oxygen Delivery Me thod Nasal Cannula 10/30/23 14:41 Oxygen Flow Rate 2 10/30/23 14:41 MDM - Allergic Reaction Medical Decision Making Patient presents here likely allergic reaction her chemo with infusion. She still does have some shortness of breath but able to titrated down to 2 L of oxygen she is in A-fib with RVR could be from the epinephrine did start her on a Cardizem drip spoke to the hospitalist and will admit at this time to cardiac stepdown Medical Records I reviewed the patient's medical records. Lab Data I reviewed the patient's lab results. 10/30/23 13:27 10/30/23 13:27 Radiology Impressions Chest X-Ray 10/30/23 13:15 IMPRESSION: No acute cardiopulmonary disease. Laboratory Results WBC 57.94 10^3/uL (3.29-11.43) H* 10/30/23 13: RBC 3.98 10^6/uL (3.85-5.65) 10/30/23 13:27 Hgb 12.00 g/dL (11.27-16.99) 10/30/23 13:27 Hct 38.6 % (36-47) 10/30/23 13:27 MCV 97.0 fl (85-98) 10/30/23 13:27 MCH 30.2 pg (27-33) 10/30/23 13:27 MCHC 31.1 g/dL (30-55) 10/30/23 13: RDW 14.3 % (12.1-15.1) 10/30/23 13:27 Plt Count 152 10^3/cmm (157-399) L 10/30/23 13:27 MPV 10.3 fL (7.4-10.4) 10/30/23 13:27 Neut % (Auto) 6.6 % 10/30/23 13:27 Lymph % (Auto) 91.6 % 10/30/23 13:27 [place] % (Auto) 1.0 % 10/30/23 13:27 Eos % (Auto) 0.4 % 10/30/23 13:27 Baso % (Auto) 0.2 % 10/30/23 13:27 Neut # (Auto) 3.87 10^3/uL (1.8-7.7) 10/30/23 13:27 Lymph # (Auto) 53.1 10^3/uL (0.8-4.8) H 10/30/23 13:27 [place] # (Auto) 0.6 10^3/uL (0.2-0.9) 10/30/23 13:27 Eos # (Auto) 0.2 10^3/uL (0.0-0.8) 10/30/23 13:27 Baso # (Auto) 0.1 10^3/uL (0.0-0.1) 10/30/23 13:27 Nucleated RBC % (auto) 0 % 10/30/23 13:27 Nucleated RBCs # 0.0 /100WBC 10/30/23 13:27 Sodium 126 mmol/L (136-145) L 10/30/23 13:27 Potassium 4.7 mmol/L (3.5-5.1) 10/30/23 13:27 Chloride 93 mmol/L (98-107) L 10/30/23 13:27 Carbon Dioxide 18 mmol/L (22-29) L 10/30/23 13:27 Anion Gap 19.7 (5-19) H 10/30/23 13:27 BUN 21 mg/dL (8-23) 10/30/23 13:27 Creatinine 1.3 mg/dL (0.5-0.9) H 10/30/23 13:27 GFR Calculation Not Reportable 10/30/23 13:27 Glucose 224 mg/dL (65-115) H 10/30/23 13:27 Calculated Osmolality 272 mOsm/kg (285-295) L 10/30/23 13:27 Calcium 8.1 mg/dL (8.5-10.5) L 10/30/23 13:27 Total Bilirubin 0.2 mg/dL (0.15-1.2) 10/30/23 13:27 AST 47 U/L (0-32) H 10/30/23 13:27 ALT 17 U/L (0-33) 10/30/23 13:27 Alkaline Phosphatase 90 U/L (35-105) 10/30/23 13:27 NT-Pro-B Natriuret Pep 505 pg/mL (0-125) H 10/30/23 13:27 Total Protein 6.5 g/dL (6.6-8.7) L 10/30/23 13:27 Albumin 3.8 g/dL (3.5-5.2) 10/30/23 13:27 Globulin 2.7 g/dL (1.3-4.6) 10/30/23 13:27 All radiology interpretation(s) finalized by discharge Discharge Plan Discharge Patient Disposition: Admitted As Inpatient Clinical Impression: Allergic reaction, Atrial fibrillation with RVR Condition: Stable Coding Level of Care Code ED Registered Nurse First Assistant for Triston Mancini
[2023-10-30] MEDS: diphenhydrAMINE 50 mg/mL SDV 1mL IVP (13:39)
[2023-10-30 13:41] LABS: Basophils # 0.1 10^3/uL (0.0-0.1); Basophils % 0.2 %; Eosinophils # 0.2 10^3/uL (0.0-0.8); Eosinophils % 0.4 %; Hematocrit 38.6 % (36-47); Lymphocytes # 53.1 10^3/uL (0.8-4.8); Lymphocytes % 91.6 %; Mean Corpuscular HGB Conc 31.1 g/dL (30-55); Mean Corpuscular Hemoglobin 30.2 pg (27-33); Mean Platelet Volume 10.3 fL (7.4-10.4); Monocytes # 0.6 10^3/uL (0.2-0.9); Neutrophils # 3.87 10^3/uL (1.8-7.7); Neutrophils % 6.6 %; Nucleated Red Blood Cells % 0 %; Platelet Count 152 10^3/cmm (157-399); Red Blood Count 3.98 10^6/uL (3.85-5.65); Red Cell Distribution Width 14.3 % (12.1-15.1)
[2023-10-30 13:54] LABS: Alanine Aminotransferase 17 U/L (0-33); Albumin Level 3.8 g/dL (3.5-5.2); Alkaline Phosphatase 90 U/L (35-105); Anion Gap 19.7 (5-19); Aspartate Amino Transferase 47 U/L (0-32); Blood Urea Nitrogen 21 mg/dL (8-23); Calcium 8.1 mg/dL (8.5-10.5); Carbon Dioxide 18 mmol/L (22-29); Chloride 93 mmol/L (98-107); Globulin 2.7 g/dL (1.3-4.6); Glucose 224 mg/dL (65-115); Osmolality Calculated 272 mOsm/kg (285-295); Potassium 4.7 mmol/L (3.5-5.1); Sodium 126 mmol/L (136-145); Total Bilirubin 0.2 mg/dL (0.15-1.2); Total Protein 6.5 g/dL (6.6-8.7)
[2023-10-30] MEDS: albuterol 2.5 mg/3 mL Neb INHALATION (14:00)
[2023-10-30] MEDS: dilTIAZem 5 mg/mL SDV 5 mL 15 MG IVP (14:10)
[2023-10-30] MEDS: dilTIAZem 100 MG in sodium chloride 0.9% (add-van) 100 ML IV (14:40)
[2023-10-30 14:46] LABS: Slide Review Slide Review Perform
[2023-10-30 14:48] LABS: White Blood Count 57.94 10^3/uL (3.29-11.43)
[2023-10-30 14:55] LABS: NT Pro B Type Natriuretic Pept 505 pg/mL (0-125)
--- NOTE | 2023-10-30 15:30 | CTR_ITS ---
PROCEDURE INFORMATION: Exam: CTA Chest With Contrast Exam date and time: 10/30/2023 4:34 PM Age: 73 years old Clinical indication: Shortness of breath; Additional info: SOB TECHNIQUE: Imaging protocol: Computed tomographic angiography of the chest with contrast. Exam focused on the arteries. 3D rendering (Not supervised by radiologist): MIP and/or 3D reconstructed images were created by the technologist. Radiation optimization: All CT scans at this facility use at least one of these dose optimization techniques: automated exposure control; mA and/or kV adjustment per patient size (includes targeted exams where dose is matched to clinical indication); or iterative reconstruction. Contrast material: OMNI 350; Contrast volume: 100 ml; Contrast route: INTRAVENOUS (IV); REPORTING DATA: Count of CT and Cardiac NM exams in prior 12 months: This patient has received [address] and 0 known cardiac nuclear medicine studies in the 12 months prior to the current study. COMPARISON: CT chest abdpel [id number]/*[id number] 06/26/2023 12:18 PM RADIATION DOSE METRICS: Total DLP (mGy-cm): 419 FINDINGS: Pulmonary arteries: There is no evidence of filling defects within the pulmonary arterial circulation to suggest pulmonary embolism. Aorta: There is no thoracic aortic aneurysm or dissection. Thyroid: 7 mm thyroid nodule not significantly changed. No further evaluation is necessary. Lungs: There are changes of severe centrilobular emphysema with an apical predominance. Left upper lobe nodule previously measuring 6 x 9 mm currently measures 7 x 11 mm. Further evaluation such as with PET-CT scan or biopsy recommended. No focal pulmonary infiltrate is identified. There is a calcified granuloma in the right lower lobe. Pleural spaces: Unremarkable. No pneumothorax. No pleural effusion. Heart: Unremarkable. No cardiomegaly. No pericardial effusion. Lymph nodes: There are enlarging axillary lymph nodes, lymph nodes on the right previously measuring 11 x 18 mm and 17 x 20 mm currently measure 16 x 31 mm and 26 x 28 mm likewise left axillary lymph node previously measuring 18 x 24 mm currently measures 24 x 27 mm and one measuring 17 x 37 mm currently measures 22 x 39 mm. There are multiple other lymph nodes in both axilla demonstrating similar enlargement. Hilar adenopathy is not significantly changed but there has been some increase in the subcarinal adenopathy with a node previously measuring 17 x 20 mm measuring 20 x 24 mm. There are mildly prominent prevascular lymph nodes not significantly changed. There are calcified hilar and mediastinal lymph nodes in keeping with old granulomatous disease. Diaphragm: There is a small hiatal hernia. Kidneys and ureters: Left upper pole renal mass only partly imaged on this examination. This is grossly unchanged from the prior study on which it was characterized as being concerning for renal cell neoplasm. Further evaluation is suggested. Bones/joints: There is moderate scoliosis of the midthoracic spine concave to the left. There is no evidence of acute fracture. Soft tissues: See Lymph nodes finding. CT/CT angio chest PE protcl [id number] IMPRESSION: 1. Enlarging left upper lobe pulmonary nodule. Consider further evaluation with PET-CT scan or biopsy. 2. Increasing adenopathy 3. Findings worrisome for left renal malignancy 4. Old granulomatous disease 5. No evidence of pulmonary embolism. COMMENTS: 1. Consistent with the [employer]'s Incidental Findings Committee white paper (J Am Reid Radiol 2018): Any incidental renal lesion less than 1 cm or classified as too small to characterize, or any incidental cystic renal lesion characterized as simple-appearing, is likely benign. No follow-up imaging is recommended for these lesions per consensus recommendations based on imaging criteria. 2. In the absence of a history or active diagnosis of lung cancer, it is recommended that this patient with emphysema be evaluated for enrollment in a low dose CT lung cancer screening program.
--- NOTE | 2023-10-30 15:40 | P.HP_ITS ---
Providers/Chief Complaint 2 Primary Care Provider: Otto Portillo Chief Complaint: ALLERGIC REACTION History of Present Illness Zoraida Dia is a 73 year old female with a past medical history of gwz-hikemkr-cqyqermge type 2 diabetes mellitus, COPD, quit smoking 2006, history of chronic lymphocytic leukemia, hypertension, hyperlipidemia, patient was in chemotherapy infusion suite, was at infusion suite, when she started to feel short of breath, she got up and use the bathroom when she was feeling short of breath, and nurses noted wheals and hives on her arms, rapid response was called, she is feeling short of breath, no lip swelling, no tongue swelling, she was given epinephrine, Benadryl, here in the emergency room,was given Benadryl, she was found to have A-fib with RVR, given Cardizem bolus, started on Cardizem drip, currently in atrial fibrillation, heart rates in the low 100s, she does complain of shortness of breath, no chest pain, no palpitations no history of CAD, no lip swelling, no tongue swelling, no fevers, no chills, no lightheadedness, no dizziness. She does, that about a week ago, she was sick, with fevers, cough, and since then she has had some intermittent cough, no calf pain, no calf swelling Review of Systems 2 Const: Denies: fever(s) Card: Reports: palpitations and dyspnea on exertion; Denies: chest pain Resp: Reports: dyspnea Medications/Allergies Home Medications Medication Instructions Recorded Confirmed Last Taken Type blood sugar diagnostic #50 ea 08/05/20 10/30/23 Unknown Rx metformin 500 mg tablet 500 mg PO BID #180 tabs 09/01/22 10/30/23 10/30/23 Rx citalopram 10 mg tablet (Celexa) 10 mg PO DAILY #90 tabs 12/08/22 10/30/23 10/30/23 Rx blood sugar diagnostic (OneTouch #100 ea 02/06/23 10/30/23 Unknown Rx Verio test strips) docusate sodium 50 mg capsule 50 mg PO DAILY 03/26/23 10/30/23 10/30/23 History (Stool Softener) lisinopril 10 mg tablet 10 mg PO DAILY #90 tabs 08/10/23 10/30/23 10/30/23 Rx allopurinol 300 mg tablet 300 mg PO DAILY #30 tabs 10/16/23 10/30/23 10/30/23 Rx fluconazole 100 mg tablet 100 mg PO DAILY #90 tabs 10/23/23 10/30/23 Unknown Rx lorazepam 0.5 mg tablet 0.5 mg PO Q6H PRN Severe Nausea or 10/23/23 10/30/23 Unknown Rx vomiting #90 tabs prochlorperazine maleate 10 mg 10 mg PO Q6H PRN nausea and 10/23/23 10/30/23 Unknown Rx tablet (Compazine) vomiting #180 tabs sulfamethoxazole 800 1 tab PO .QMWF to prevent 10/23/23 10/30/23 Unknown Rx mg-trimethoprim 160 mg tablet bacterial infection #24 tabs (Bactrim DS) valacyclovir 500 mg tablet 500 mg PO BID To prevent viral 10/23/23 10/30/23 Unknown Rx infection #60 tabs venetoclax 10 mg (14)-50 mg See Rx Instructions PO .COMPLEX 10/26/23 10/30/23 Unknown Rx (7)-100 mg (21) tablets in a dose #42 ea pack venetoclax 100 mg tablet 400 mg (4 x 100 mg) PO DAILY 28 10/26/23 10/30/23 Unknown Rx days #120 tabs fluticasone fur. 200 mcg-umeclid 1 inh inhalation QAM 10/30/23 10/30/23 10/30/23 History 62.5 mcg-vilant 25 mcg inhalat.powder (Trelegy Ellipta) meloxicam 15 mg tablet 15 mg PO DAILY 10/30/23 10/30/23 10/30/23 History venetoclax 10 mg (14)-50 mg See Rx Instructions .Route 10/30/23 10/30/23 Unknown Rx (7)-100 mg (21) tablets in a dose .COMPLEX #1 ea pack (Venclexta Starting Pack) Allergies Allergy/AdvReac Type Severity Reaction Status Date / Time lovastatin Allergy Unknown Verified 10/30/23 13:11 loratadine [From Claritin] AdvReac sleeplessne Verified 10/30/23 13:11 ss PFSH Acute 2 PFSH: Medical History Chronic anxiety Type 2 diabetes mellitus Chronic lymphocytic leukemia Vitamin D deficiency 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 This causes her pain. COPD (chronic obstructive pulmonary disease) Mixed hyperlipidemia Essential hypertension Surgical History History of local excision of skin lesion From side of nose, skin cancer Family History Father CAD (coronary artery disease) Other Dementia Diabetes Hyperlipidemia Hypertension Lung disease Denies family history of Clotting disorder Psychiatric illness Chronic kidney disease (CKD) Suicide Anesthesia complication Bleeding disorder Cancer Stroke Social History Smoking and tobacco/nicotine status: former use of tobacco/nicotine Quit status (tobacco/nicotine): has quit using Year quit tobacco: 2006 Former quit date comment: Smoke for 40+ years Second hand smoke exposure: No Vitals/I&O/Wt Last Vital Signs Temp 98.4 F 10/30/23 13:08 Pulse 112 H 10/30/23 14:07 Resp 34 H 10/30/23 14:07 BP 185/87 10/30/23 13:11 Pulse Ox 93 10/30/23 14:07 O2 Del Method Nasal Cannula 10/30/23 14:07 O2 Flow Rate 2 10/30/23 14:07 Weight last 48 hrs Weight 81.647 kg Physical Exam 2 Const: COMMON NORMALS: no acute distress and patient oriented x3 Eye: COMMON NORMALS: Equal, round and reactive pupils present and EOMs intact bilaterally Neck/C-Spine: COMMON NORMALS: full ROM and no lymphadenopathy Resp: COMMON NORMALS: normal respiratory effort and No retractions A USCULTATION: wheezes Cardio: COMMON NORMALS: no JVD, S1 normal heart sound present and S2 normal heart sound present RATE: tachycardic RHYTHM: abnormal rhythm HEART SOUNDS: S1 normal heart sound present and S2 normal heart sound present GI: COMMON NORMALS: Normal to inspection, nondistended, normoactive bowel sounds present, Soft to palpation and non-tender Extremity: COMMON NORMALS: no pedal edema Neuro: COMMON NORMALS: patient oriented x3, CN's II-XII intact bilaterally, moves all extremities and no focal motor deficits Psych: COMMON NORMALS: mental status grossly normal Data 10/30/23 13:27 10/30/23 13:27 A&P Assessment and plan (1) Atrial fibrillation with RVR: (2) Allergic reaction: (3) Diabetes: (4) Acute hypoxemic respiratory failure: Plan Acute hypoxic respiratory failure, ? Etiology unclear ? Chest x-ray within normal limits ? Does have diffuse wheezing on examination, ? BNP is slightly elevated, no history of heart failure, ? Did complain of fevers and chills, for the last week, and a nonproductive cough, ? We will do Pro-Hubert, CRP, respiratory viral panel, ? We will order CT angiogram of the chest, ? Monitor respiratory status closely, does report a history of COPD, quit smoking over 15 yrs ago A-fib with RVR ? Cardizem drip, ? P.o. Cardizem 30 every 6 hours, ? Therapeutic Lovenox, ? Cardiac echo, Allergic reaction, to chemotherapy agent, ? Monitor as inpatient, ? Continue prednisone ? No evidence of anaphylaxis ? Type 2 diabetes mellitus, low-dose sliding scale Hyponatremia, serum sodium 127, monitor, Creatinine 1.3, monitor, History of chronic lymphocytic leukemia, with leukocytosis, monitor lymphocytic Attestations 2 Medical Necessity Statement*: Patient requires hospitalization, inpatient, greater than 2 midnights, for acute toxic respiratory failure, A-fib with RVR, allergic reaction Diagnoses Atrial fibrillation with RVR I48.91 Allergic reaction T78.40XA Diabetes E11.9 Acute hypoxemic respiratory failure J96.01
[2023-10-30 15:54] LABS: ABG PH Result 7.37 (7.35-7.45); Arterial Blood Gas Hematocrit 35.6 % (37-47); Base Excess ABG -7.3 mmol/L (-2.0-2.0); Blood Gas Allen Test Pos; Blood Gas Operator Identificat MONRO; Blood Gas Sample Site Radial, right; Blood Gas Sample Type Arterial; HCO3 ABG 16.8 mmol/L (22-26); Oxygen Device NC; PO2 ABG 69.5 mmHg (80.0-100.0); PO2 FiO2 Ratio Arterial Blood 0
[2023-10-30 16:11] LABS: Lactic Sepsis W/Reflex 2.9 mmol/L (0.5-2.2)
[2023-10-30 16:14] LABS: INR 0.98 (0.8-1.2)
[2023-10-30] MEDS: pantoprazole 40 mg SDV IVP (16:16)
[2023-10-30] MEDS: enoxaparin 100 mg/mL Syringe 80 MG SUBCUT (16:16)
[2023-10-30 16:20] LABS: Troponin(5th) Baseline 45 ng/L (0-10)
[2023-10-30 16:23] LABS: D Dimer 8.43 ug/mLFEU (0-0.59)
[2023-10-30 16:24] LABS: Estmated Average Glucose 134; Hemoglobin A1C 6.3 % (4.0-6.0)
[2023-10-30 16:29] LABS: Procalcitonin 0.33 ng/mL (0-0.5); Thyroid Stimulating Hormone 0.71 uIU/mL (0.27-4.20)
[2023-10-30 16:30] LABS: Troponin 5 2HR 201.5 ng/L (0-10); Troponin 5 2HR Delta 156.5 ABS# (0-10)
[2023-10-30 16:40] LABS: C Reactive Protein 25.5 mg/L (0.0-4.9); Chol HDL Ratio 5.96 mg/dL (0.0-4.40); Cholesterol 161 mg/dL (0-200); HDL Cholesterol 27 mg/dL (60-100); LDL Cholesterol Calculated 107 mg/dL (50-129); LDL HDL Ratio 3.96 RATIO (0.00-3.22); Triglycerides 136 mg/dL (0-150)
--- NOTE | 2023-10-30 16:43 | ECG_ITS ---
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 Measurements Intervals [place] Rate: 95 P: 88 MS: 157 QRS: 81 QRSD: 85 T: 70 QT: 369 QTc: 466 Interpretive Statements SINUS RHYTHM WITH OCCASIONAL VENTRICULAR PREMATURE COMPLEXES WITH OCCASIONAL SUPRAVENTRICULAR PREMATURE COMPLEXES LOW QRS VOLTAGE IN PRECORDIAL LEADS [QRS DEFLECTION < 1.0 mV IN CHEST LEADS] SEPTAL MYOCARDIAL INFARCTION , OF INDETERMINATE AGE [40+ ms Q WAVE IN V1/V2] Compared to ECG 10/30/2023 13:16:17 Ventricular premature complex(es) now present Low QRS voltage now present Myocardial infarct finding now present Atrial fibrillation no longer present T-wave abnormality no longer present Electronically Signed On 10-30-2023 22:14:34 SUPERVISOR FELTING by Emily Sanchez M.D. [id number]
[2023-10-30] MEDS: iohexol 350 mg/mL 500 mL Btl (per mL) IV (16:44)
[2023-10-30 17:30] LABS: Reflex Lactate Order REFLEX LACTIC ORDERD
--- NOTE | 2023-10-30 18:03 | ECG_ITS ---
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 Measurements Intervals [place] Rate: 85 P: 86 TX: 161 QRS: 77 QRSD: 90 T: 71 QT: 405 QTc: 482 Interpretive Statements SINUS RHYTHM LOW QRS VOLTAGE IN PRECORDIAL LEADS [QRS DEFLECTION < 1.0 mV IN CHEST LEADS] SEPTAL MYOCARDIAL INFARCTION , OF INDETERMINATE AGE [40+ ms Q WAVE IN V1/V2] Compared to ECG 10/30/2023 16:43:29 Ventricular premature complex(es) no longer present Myocardial infarct finding still present Electronically Signed On 10-30-2023 22:15:40 PSYCHIATRIC NURSE PRACTITIONER by Emily Sanchez M.D. [id number]
[2023-10-30 18:37] LABS: Glucose Point of Care 372 mg/dL (70-110)
[2023-10-30] MEDS: dilTIAZem 30 mg Tablet PO ×2 (18:59→23:43)
[2023-10-30] MEDS: insulin lispro 100 unit/1 mL SUBCUT (19:04)
[2023-10-30] MEDS: sodium chloride 0.9% 1,000 ML 30 ML IV (19:42)
[2023-10-30 19:50] LABS: Lactic Acid level (Lactate) 2.6 mmol/L (0.5-2.2)
[2023-10-30 19:58] LABS: Add Urine Microscopic? YES; Bilirubin Urine Neg (Negative); Blood Urine 2+ (Negative); Glucose Urine UA 2+ (Normal); Ketones Urine Negative (Negative); Leukocyte Esterase Urine Negative (Negative); Nitrate Urine Negative (Negative); Protein Urine Neg (Negative); Urine Appearance Clear (CLEAR); Urine Color Yellow (Yellow); Urobilinogen Urine Norm (Negative); pH Urine 5 (5-7)
[2023-10-30 20:10] LABS: Add Urine Culture? No; Amorphous Sediment Urine TRACE /hpf; Bacteria Urine TRACE /hpf; Mucus Urine 1+ /hpf; RBC Urine 0-4 /hpf (0-2); Squamous Epithelial Cell Urine RARE /hpf (0-5); Transitional Epi Cells Urine RARE /hpf; WBC Urine 0-4 /hpf (0-5)
[2023-10-30 21:13] LABS: Uric Acid 4.8 mg/dL (2.4-5.7)
[2023-10-30 21:14] LABS: Troponin 5 6HR 227.7 ng/L (0-10)
[2023-10-30 21:14] LABS: Glucose Point of Care 338 mg/dL (70-110)
[2023-10-30 21:15] LABS: Troponin 5 6HR Delta 182.7 ng/L (0-12)
[2023-10-30 21:17] LABS: Adenovirus Not Detected (NOT DETECT); Chlamydia Pneumoniae Not Detected (NOT DETECT); Coronavirus 229E,HKU1,NL63,OC4 Not Detected (NOT DETECT); Human Metapneumovirus Not Detected (NOT DETECT); Human Rhinovirus/Enterovirus Not Detected (NOT DETECT); Influenza A Not Detected (NOT DETECT); Influenza A H1 Not Detected (NOT DETECT); Influenza A H1-2009 Not Detected (NOT DETECT); Influenza A H3 Not Detected (NOT DETECT); Influenza B Not Detected (NOT DETECT); Mycoplasma Pneumoniae Not Detected (NOT DETECT); Parainfluenza Virus Type 1 Not Detected (NOT DETECT); Parainfluenza Virus Type 2 Not Detected (NOT DETECT); Parainfluenza Virus Type 3 Not Detected (NOT DETECT); Parainfluenza Virus Type 4 Not Detected (NOT DETECT); Respiratory Syncytial Virus A Not Detected (NOT DETECT); Respiratory Syncytial Virus B Not Detected (NOT DETECT); SARS-COV-2 Not Detected (NOT DETECT)
[2023-10-31] VITALS (8 sets, daily range): BP systolic 104–124; BP diastolic 61–68; PULSE 61–75; RESP 17–26; TEMP 36.4–36.6; O2SAT 95–98
[2023-10-31] MEDS: enoxaparin 100 mg/mL Syringe 80 MG SUBCUT ×2 (02:58→14:38)
[2023-10-31 03:32] LABS: Basophils # 0.1 10^3/uL (0.0-0.1); Basophils % 0.1 %; Hematocrit 35.1 % (36-47); Lymphocytes # 50.6 10^3/uL (0.8-4.8); Lymphocytes % 77.7 %; Mean Corpuscular HGB Conc 31.1 g/dL (30-55); Mean Corpuscular Volume 96.7 fl (85-98); Mean Platelet Volume 10.7 fL (7.4-10.4); Monocytes % 1.6 %; Neutrophils # 12.96 10^3/uL (1.8-7.7); Neutrophils % 19.8 %; Nucleated Red Blood Cells % 0 %; Platelet Count 155 10^3/cmm (157-399); Red Blood Count 3.63 10^6/uL (3.85-5.65); Red Cell Distribution Width 14.6 % (12.1-15.1)
[2023-10-31 03:52] LABS: Lactate (Lactic Acid level) 2.2 mmol/L (0.5-2.2)
[2023-10-31 04:01] LABS: NT Pro B Type Natriuretic Pept 4295 pg/mL (0-125)
[2023-10-31 04:07] LABS: White Blood Count 65.12 10^3/uL (3.29-11.43)
[2023-10-31 04:08] LABS: Slide Review Slide Review Perform
[2023-10-31 04:13] LABS: Alanine Aminotransferase 19 U/L (0-33); Albumin Level 3.5 g/dL (3.5-5.2); Alkaline Phosphatase 73 U/L (35-105); Aspartate Amino Transferase 47 U/L (0-32); Blood Urea Nitrogen 27 mg/dL (8-23); C Reactive Protein 61.3 mg/L (0.0-4.9); Calcium 7.8 mg/dL (8.5-10.5); Carbon Dioxide 19 mmol/L (22-29); Chloride 96 mmol/L (98-107); Creatine Phosphokinase 212 U/L (26-192); Globulin 2.4 g/dL (1.3-4.6); Glucose 276 mg/dL (65-115); Magnesium 2.1 mg/dL (1.7-2.3); Osmolality Calculated 281 mOsm/kg (285-295); Phosphorus 4.8 mg/dL (2.5-4.5); Sodium 128 mmol/L (136-145); Total Bilirubin 0.2 mg/dL (0.15-1.2); Total Protein 5.9 g/dL (6.6-8.7)
[2023-10-31 06:15] LABS: Procalcitonin > 100.00 ng/mL (0-0.5)
[2023-10-31] MEDS: dilTIAZem 30 mg Tablet PO ×3 (06:31→17:46)
[2023-10-31 06:37] LABS: Glucose Point of Care 251 mg/dL (70-110)
--- NOTE | 2023-10-31 08:46 | USCV_ITS ---
Zoraida Dia Age: 73 Gender: F : 1950 Exam Date: 10/31/2023 09:58 Ordering Phys: Jesus Alberto Hickey MD Technologist: SHAY [place] [facility] [place]: [place]STEMI BP: 104 / 61 HR: 57 Rhythm: Sinus Technical Quality: Suboptimal MEASUREMENTS (Male / Female) Normal Values 2D ECHO LVOT Diameter 2.0 cm LV Ejection Fraction MOD 2C 72.4 % LV Ejection Fraction 2C AL 73.9 % LA Diameter 2.5 cm LA Width 2.5 cm LA Height 3.1 cm RA Width 3.2 cm RA Height 3.4 cm Aorta at Sinotubular Diameter 1.9 cm IVC Diameter 2.4 cm M-MODE Aortic Annulus Diameter 2.9 cm LA Ao Ratio MM 0.8 MV E Point Septal Separation 0.5 cm DOPPLER AV Peak Velocity 109.0 cm/s LVOT Peak Velocity 102.0 cm/s AV Area Cont Eq vti 3.1 cm squared AV Area Cont Eq pk 3.0 cm squared MV Peak Velocity 111.0 cm/s MV Area PHT 3.4 cm squared Mitral E to A Ratio 2.2 MV E' Velocity 54.5 cm/s Mitral E to MV E' Ratio 8.1 Mitral E to LV E' Lateral Ratio 9.5 Mitral E to LV E' Septal Ratio 7.1 TV Peak E Velocity 93.0 cm/s Right Atrial Pressure 8.0 mmHg PV Peak Velocity 84.0 cm/s RV Acceleration Time 0.1 s RV Ejection Time 0.3 s RV AcT/ET 0.4 FINDINGS Left Ventricle This is a very poor quality study. The ventricle is not well- seen in any view. Overall, the left ventricular function is probably normal and the ejection fraction is probably within normal range. Wall motion disturbances cannot be determined. Grade 1 diastolic dysfunction. Right Ventricle Right ventricle not well visualized. Right Atrium The right atrium is normal in size. Left Atrium The left atrium is normal in size. Mitral Valve Mitral valve not well visualized. Aortic Valve Aortic valve not well visualized. Tricuspid Valve Tricuspid valve not well visualized. Pulmonic Valve Pulmonic valve not well visualized. Pericardium Normal pericardium without effusion. Aorta Aorta not well visualized. IVC Inferior vena cava not visualized. CONCLUSIONS This is a very poor quality study. The ventricle is not well- seen in any view. Overall, the left ventricular function is probably normal and the ejection fraction is probably within normal range. Wall motion disturbances cannot be determined. Grade 1 diastolic dysfunction. No prior study for comparison. Dr. Home Castillo MD (Electronically Signed) Final Date: 31 October 2023 15:07 S
[2023-10-31] MEDS: predniSONE 20 mg Tablet 40 MG PO (08:53)
[2023-10-31] MEDS: allopurinol 300 mg Tablet PO (08:53)
[2023-10-31] MEDS: insulin lispro 100 unit/1 mL SUBCUT ×3 (08:54→17:46)
[2023-10-31] MEDS: citalopram 20 mg Tablet 10 MG PO (08:54)
[2023-10-31] MEDS: lisinopril 10 mg Tablet PO (08:54)
--- NOTE | 2023-10-31 10:05 | PC.CHAP ---
Pastoral Care Encounter/Spiritual Assessment Type of Contact [] Declined water commissioner visit [] Patient/Family/Request visit [] Outpatient visit [] Follow-up visit [] Physician referral [] Code/Alert [x] Routine visit [] Staff referral [] Actively dying [] Patient sleeping [x] Family support [] [] Out of room [] Palliative care [] [] Receiving care in room [] Pre-surgical visit [] Trauma [] Long length of stay [] ICU visit [] Other: Relational/Emotional Strength [] Patient feels connected with others/family/visitors/staff [] Distress [] Loneliness/isolation [] Abandonment Spirituality of Patient [] Person of Dorinda [] Attends Mosque of their Dorinda [] Believes in Prayer [] Reads Bible or Orthodoxy materials [] There are Spiritual issues to be addressed Animal Health Technician Interventions [x] Prayer [] Active listening [] Non-anxious presence [x] Spiritual/emotional support [] Crisis/trauma care [] Spiritual counseling [] Bereavement support [] Provided bereavement packet [] Provided Bible/devotional materials [] Provided toy/stuffed animal, coloring book to patient or family member [] Provided Communion [] Anointing/[place] [] Salvation [] Completed spiritual assessment [] Other: Impact on Illness or Injury [] Angry [] Fearful [] Anxious [] Often cries [] Exhaustion [] Unable to work [] Unable to attend gnosticism [] Unable to walk/stand [] Unable to read [] Unable to drive [] Unable to eat/drink [] Unable to sleep [] Unable to be with family [] Patient intubated [] Other: Summary Time spent with patient 15 min
[2023-10-31] MEDS: FUROsemide 10 mg/mL SDV 4mL 40 MG IVP (12:13)
--- NOTE | 2023-10-31 13:42 | P.PN_ITS ---
Subjective 2 Subjective: Patient was seen this morning, she continues to have complaints of shortness of breath, currently in normal sinus rhythm, denies any blood or black stools, no lightheadedness, dizziness, he is on room air, normotensive, afebrile we discussed her evidence of fluid overload, crackles on exam we will give her 1 dose of Lasix and need to monitor as her creatinine is 1.4 sodium is 129, discussed her elevated inflammatory markers we will have to monitor this, although CT angiogram was negative for any acute lobar pneumonia, discussed elevated troponins, will have to do a cardiac echocardiogram she has no complaints of chest pain, we discussed the plan for today for her to ambulate, we will continue to monitor closely, if any chest pain we will have to consider stress testing Vitals/I&O/Wt Last Vital Signs Temp 97.8 F 10/31/23 12:00 Pulse 69 10/31/23 12:00 Resp 17 10/31/23 12:00 BP 124/68 10/31/23 12:00 Pulse Ox 96 10/31/23 12:00 O2 Del Method Nasal Cannula 10/31/23 12:00 O2 Flow Rate 2 10/31/23 10:39 10/30/23 10/31/23 10/31/23 22:59 06:59 14:59 Intake Total 265.333 / 265.333 240 / 505.333 480 / 480 Output Total 400 / 400 Balance -134.667 / -134.667 240 / 105.333 480 / 480 Weight last 48 hrs Weight 82.146 kg Weight 82.962 kg Weight 81.647 kg Physical Exam 2 Const: COMMON NORMALS: no acute distress and patient oriented x3 Resp: COMMON NORMALS: normal respiratory effort, No retractions and No use of accessory muscles AUSCULTATION: crackles Cardio: COMMON NORMALS: regular rate, regular rhythm, S1 normal heart sound present and S2 normal heart sound present RATE: regular rate RHYTHM: r egular rhythm HEART SOUNDS: S1 normal heart sound present and S2 normal heart sound present GI: COMMON NORMALS: Normal to inspection, nondistended, normoactive bowel sounds present and non-tender Extremity: NARRATIVE EXTREMITY EXAM: 1+ edema Neuro: COMMON NORMALS: patient oriented x3 Psych: COMMON NORMALS: mental status grossly normal Data 10/31/23 03:03 10/31/23 03:03 A&P Assessment and plan (1) Atrial fibrillation with RVR: (2) Allergic reaction: (3) Diabetes: (4) Acute hypoxemic respiratory failure: Plan Acute hypoxic respiratory failure, ?Fluid overload? ? Chest x-ray within normal limits ? Does have diffuse wheezing on examination, ? BNP is slightly elevated, no history of heart failure, ? Did complain of fevers and chills, for the last week, and a nonproductive cough, ? We will do Pro-Hubert over 100, CRP 66 ? Monitor respiratory status closely, does report a history of COPD, quit smoking over 15 yrs ago ? Cardiac echo, ? 1 dose Lasix ? Respiratory panel viral panel within normal limits, chest x-ray no acute infiltrate, UA within normal limits NSTEMI ? Type I versus type II, serial EKGs, ? Continue aspirin, statin, ? Cardiac echo CT angiogram of the chest shows 1. Enlarging left upper lobe pulmonary nodule. Consider further evaluation with PET-CT scan or biopsy. 2. Increasing adenopathy 3. Findings worrisome for left renal malignancy 4. Old granulomatous disease 5. No evidence of pulmonary embolism. We will have patient follow-up with Dr. Holley about pulmonary nodule, I spoke to him personally about this, Patient has a known history of left renal mass being worked up at [facility] A-fib with RVR ? Cardizem drip, ? P.o. Cardizem 30 every 6 hours, ? Therapeutic Lovenox, ? Cardiac echo, Allergic reaction, to chemotherapy agent, ? Monitor as inpatient, ? Continue prednisone ? No evidence of anaphylaxis ? Type 2 diabetes mellitus, low-dose sliding scale Hyponatremia, serum sodium 127, monitor, Creatinine 1.3, monitor, History of chronic lymphocytic leukemia, with leukocytosis, monitor lymphocytic Attestations 2 Medical Necessity Statement*: Patient requires hospitalization for NSTEMI, A-fib, fluid overload Diagnoses Atrial fibrillation with RVR I48.91 Allergic reaction T78.40XA Diabetes E11.9 Acute hypoxemic respiratory failure J96.01
[2023-10-31] MEDS: aspirin 81 mg EC Tablet PO (14:38)
[2023-10-31] MEDS: pantoprazole 40 mg SDV IVP (16:11)
[2023-10-31 18:48] LABS: Glucose Point of Care 212 mg/dL (70-110)
[2023-10-31 18:48] LABS: Glucose Point of Care 313 mg/dL (70-110)
[2023-10-31 19:34] LABS: Glucose Point of Care 222 mg/dL (70-110)
[2023-11-01] MEDS: dilTIAZem 30 mg Tablet PO ×3 (00:27→11:20)
[2023-11-01 01:06] VITALS: BP 136/69; PULSE 62; RESP 20
[2023-11-01 04:15] LABS: Basophils # 0.1 10^3/uL (0.0-0.1); Basophils % 0.1 %; Hematocrit 35.1 % (36-47); Lymphocytes # 49.5 10^3/uL (0.8-4.8); Lymphocytes % 77.3 %; Mean Corpuscular HGB Conc 31.9 g/dL (30-55); Mean Corpuscular Hemoglobin 29.9 pg (27-33); Mean Corpuscular Volume 93.6 fl (85-98); Mean Platelet Volume 11.1 fL (7.4-10.4); Monocytes # 1.1 10^3/uL (0.2-0.9); Monocytes % 1.8 %; Neutrophils # 12.94 10^3/uL (1.8-7.7); Neutrophils % 20.2 %; Nucleated Red Blood Cells % 0 %; Platelet Count 184 10^3/cmm (157-399); Red Blood Count 3.75 10^6/uL (3.85-5.65); Red Cell Distribution Width 14.4 % (12.1-15.1)
[2023-11-01 04:21] VITALS: BP 102/54; PULSE 52; RESP 17
[2023-11-01] MEDS: enoxaparin 80 mg/0.8 mL Syringe SUBCUT (04:30)
[2023-11-01 04:34] LABS: INR 1.06 (0.8-1.2); Slide Review Slide Review Perform
[2023-11-01 04:35] LABS: White Blood Count 63.99 10^3/uL (3.29-11.43)
[2023-11-01 04:39] LABS: Lactate (Lactic Acid level) 1.7 mmol/L (0.5-2.2)
[2023-11-01 04:42] LABS: C Reactive Protein 51.4 mg/L (0.0-4.9); Uric Acid 6.1 mg/dL (2.4-5.7)
[2023-11-01 04:44] LABS: Alanine Aminotransferase 21 U/L (0-33); Albumin Level 3.7 g/dL (3.5-5.2); Alkaline Phosphatase 72 U/L (35-105); Anion Gap 17.2 (5-19); Aspartate Amino Transferase 28 U/L (0-32); Blood Urea Nitrogen 31 mg/dL (8-23); Calcium 8.3 mg/dL (8.5-10.5); Carbon Dioxide 20 mmol/L (22-29); Chloride 100 mmol/L (98-107); Globulin 2.7 g/dL (1.3-4.6); Glucose 194 mg/dL (65-115); Magnesium 2.4 mg/dL (1.7-2.3); Osmolality Calculated 286 mOsm/kg (285-295); Phosphorus 3.4 mg/dL (2.5-4.5); Potassium 5.2 mmol/L (3.5-5.1); Sodium 132 mmol/L (136-145); Total Bilirubin 0.3 mg/dL (0.15-1.2); Total Protein 6.4 g/dL (6.6-8.7)
[2023-11-01 04:48] LABS: NT Pro B Type Natriuretic Pept 1929 pg/mL (0-125)
[2023-11-01 04:59] LABS: Creatine Phosphokinase 241 U/L (26-192)
[2023-11-01 05:51] LABS: Procalcitonin > 100.00 ng/mL (0-0.5)
[2023-11-01 06:00] VITALS: BMI 31.1
[2023-11-01 06:18] LABS: Glucose Point of Care 174 mg/dL (70-110)
[2023-11-01 07:47] VITALS: BP 112/62; PULSE 63; RESP 15; TEMP 36.4; O2SAT 90
[2023-11-01] MEDS: insulin lispro 100 unit/1 mL SUBCUT ×2 (08:09→11:20)
[2023-11-01] MEDS: valACYclovir 1,000 mg Tablet 500 MG PO (08:14)
[2023-11-01] MEDS: allopurinol 300 mg Tablet PO (08:14)
[2023-11-01] MEDS: lisinopril 10 mg Tablet PO (08:14)
[2023-11-01] MEDS: citalopram 20 mg Tablet 10 MG PO (08:15)
[2023-11-01] MEDS: aspirin 81 mg EC Tablet PO (08:16)
[2023-11-01] MEDS: predniSONE 20 mg Tablet 40 MG PO (08:16)
[2023-11-01 11:14] LABS: Glucose Point of Care 273 mg/dL (70-110)
[2023-11-01] MEDS: FUROsemide 10 mg/mL SDV 4mL 40 MG IVP (11:29)
--- NOTE | 2023-11-01 11:42 | PM.DCS ---
Discharge Providers Date of Admission: 10/30/23 16:27 Date of Discharge: November 01, 2023 Attending Provider at Admission: Jesus Alberto Hickey MD Attending Provider at Discharge: Jesus Alberto Hickey MD Primary Care Provider: Otto Portillo Diagnoses at Discharge Discharge Diagnosis (1) Atrial fibrillation with RVR: Status: Acute (2) Allergic reaction: Status: Acute (3) Diabetes: Status: Acute (4) Acute hypoxemic respiratory failure: Status: Acute Reason for Visit Reason for Visit: ALLERGIC REACTION Hospital Course Hospital Course Zoraida Dia is a 73 year old female with a past medical history of [id number] type 2 diabetes mellitus, COPD, quit smoking 2006, history of chronic lymphocytic leukemia, hypertension, hyperlipidemia, patient was in chemotherapy infusion suite, was at infusion suite, when she started to feel short of breath, she got up and use the bathroom when she was feeling short of breath, and nurses noted wheals and hives on her arms, rapid response was called, she is feeling short of breath, no lip swelling, no tongue swelling, she was given epinephrine, Benadryl, here in the emergency room,was given Benadryl, she was found to have A-fib with RVR, given Cardizem bolus, started on Cardizem drip, currently in atrial fibrillation, heart rates in the low 100s, she does complain of shortness of breath, no chest pain, no palpitations no history of CAD, no lip swelling, no tongue swelling, no fevers, no chills, no lightheadedness, no dizziness. She does, that about a week ago, she was sick, with fevers, cough, and since then she has had some intermittent cough, no calf pain, no calf swelling Patient was admitted to [facility] for allergic reaction, after chemotherapy agent, no evidence of anaphylaxis, discharged on a prednisone burst, with a EpiPen Patient had acute hypoxic respiratory failure secondary to fluid overload, received inpatient diuresis, overall clinically improved, discharged with Lasix p.o. with potassium placement as outpatient, Patient was found to have A-fib with RVR, she converted to normal sinus rhythm on Cardizem drip discharged on p.o. Cardizem with Eliquis for stroke, discussed Eliquis for stroke prophylaxis, discussed risk and benefits, she voiced understanding, all questions answered, shared decision-making, agreed to proceed, She had NSTEMI, during hospitalization no chest pain complaints, type I versus type II, follow-up cardiology as outpatient for consideration of stress testing Hyponatremia 129, monitor as outpatient, SUSU, monitor as outpatient Physical Exam Const: COMMON NORMALS: no acute distress and patient oriented x3 Resp: COMMON NORMALS: normal respiratory effort, No retractions, No use of accessory muscles and clear to auscultation bilaterally AUSCULTATION: clear to auscultation bilaterally Cardio: COMMON NORMALS: regular rate, regular rhythm, S1 normal heart sound present and S2 normal heart sound present RATE: regular rate RHYTHM: regular rhythm HEART SOUNDS: S1 normal heart sound present and S2 normal heart sound present GI: COMMON NORMALS: Normal to inspection, nondistended, normoactive bowel sounds present and non-tender Extremity: COMMON NORMALS: no pedal edema Neuro: COMMON NORMALS: patient oriented x3 Psych: COMMON NORMALS: mental status grossly normal Discharge Data Studies Completed and Pending Completed Studies During Hospitalization Category Date Time Status CT angio chest PE protcl [id number] Stat Cat Scan 10/30/23 15:30 Completed XR chest 1V portable [id number] Stat Exams 10/30/23 13:15 Completed CV. echo complete* [id number] Routine Ultrasound 10/31/23 08:46 Completed Pending at discharge Category Date Time Status C Reactive Protein AM LABS Lab 11/02/23 04:00 Ordered Complete Blood Count w/Auto AM LABS Lab 11/02/23 04:00 Ordered Comprehensive Metabolic Panel AM LABS Lab 11/02/23 04:00 Ordered Creatine Phosphokinase AM LABS Lab 11/02/23 04:00 Ordered Lactate (Lactic Acid level) AM LABS Lab 11/02/23 04:00 Ordered Magnesium AM LABS Lab 11/02/23 04:00 Ordered NT Pro B Type Natriuretic Pept QAM Lab 11/02/23 06:00 Ordered Phosphorus AM LABS Lab 11/02/23 04:00 Ordered Procalcitonin AM LABS Lab 11/02/23 04:00 Ordered Prothrombin Time INR AM LABS Lab 11/02/23 04:00 Ordered Uric Acid AM LABS Lab 11/02/23 04:00 Ordered Radiology Impressions Chest X-Ray 10/30/23 13:15 IMPRESSION: No acute cardiopulmonary disease. Chest CTA 10/30/23 15:30 IMPRESSION: 1. Enlarging left upper lobe pulmonary nodule. Consider further evaluation with PET-CT scan or biopsy. 2. Increasing adenopathy 3. Findings worrisome for left renal malignancy 4. Old granulomatous disease 5. No evidence of pulmonary embolism. COMMENTS: 1. Consistent with the [employer]'s Incidental Findings Committee white paper (J Am Reid Radiol 2018): Any incidental renal lesion less than 1 cm or classified as too small to characterize, or any incidental cystic renal lesion characterized as simple-appearing, is likely benign. No follow-up imaging is recommended for these lesions per consensus recommendations based on imaging criteria. 2. In the absence of a history or active diagnosis of lung cancer, it is recommended that this patient with emphysema be evaluated for enrollment in a low dose CT lung cancer screening program. Laboratory Results WBC 63.99 10^3/uL (3.29-11.43) H* 11/01/23 03:36 RBC 3.75 10^6/uL (3.85-5.65) L 11/01/23 03:36 Hgb 11.20 g/dL (11.27-16.99) L 11/01/23 03:36 Hct 35.1 % (36-47) L 11/01/23 03:36 MCV 93.6 fl (85-98) 11/01/23 03:36 MCH 29.9 pg (27-33) 11/01/23 03:36 MCHC 31.9 g/dL (30-55) 11/01/23 03:36 RDW 14.4 % (12.1-15.1) 11/01/23 03:36 Plt Count 184 10^3/cmm (157-399) 11/01/23 03:36 MPV 11.1 fL (7.4-10.4) H 11/01/23 03:36 Neut % (Auto) 20.2 % 11/01/23 03:36 Lymph % (Auto) 77.3 % 11/01/23 03:36 [place] % (Auto) 1.8 % 11/01/23 03:36 Eos % (Auto) 0.0 % 11/01/23 03:36 Baso % (Auto) 0.1 % 11/01/23 03:36 Neut # (Auto) 12.94 10^3/uL (1.8-7.7) H 11/01/23 03:36 Lymph # (Auto) 49.5 10^3/uL (0.8-4.8) H 11/01/23 03:36 [place] # (Auto) 1.1 10^3/uL (0.2-0.9) H 11/01/23 03:36 Eos # (Auto) 0.0 10^3/uL (0.0-0.8) 11/01/23 03:36 Baso # (Auto) 0.1 10^3/uL (0.0-0.1) 11/01/23 03:36 Nucleated RBC % (auto) 0 % 11/01/23 03:36 Nucleated RBCs # 0.0 /100WBC 11/01/23 03:36 PT 14.10 SECONDS (12.1-14.9) 11/01/23 03:36 INR 1.06 (0.8-1.2) 11/01/23 03:36 D-Dimer 8.43 ug/mLFEU (0-0.59) H 10/30/23 13:27 Specimen Type Arterial 10/30/23 15:41 Sample Site Radial, right 10/30/23 15:41 ABG pH 7.37 (7.35-7.45) 10/30/23 15:41 ABG pCO2 29.0 mmHg (35-45) L 10/30/23 15:41 ABG pO2 69.5 mmHg (80.0-100.0) L 10/30/23 15:41 ABG PO2/FiO2 Ratio 0 10/30/23 15:41 ABG HCO3 16.8 mmol/L (22-26) L 10/30/23 15:41 ABG Base Excess -7.3 mmol/L (-2.0-2.0) L 10/30/23 15:41 [place] Test Pos 10/30/23 15:41 Hematocrit 35.6 % (37-47) L 10/30/23 15:41 O2 Delivery Device Nc 10/30/23 15:41 O2 Liters/Min 2.0 % 10/30/23 15:41 FiO2 28.0 % 10/30/23 15:41 Manager Drug Safety ID [place] 10/30/23 15:41 Sodium 132 mmol/L (136-145) L 11/01/23 03:36 Potassium 5.2 mmol/L (3.5-5.1) H 11/01/23 03:36 Chloride 100 mmol/L (98-107) 11/01/23 03:36 Carbon Dioxide 20 mmol/L (22-29) L 11/01/23 03:36 Anion Gap 17.2 (5-19) 11/01/23 03:36 BUN 31 mg/dL (8-23) H 11/01/23 03:36 Creatinine 1.2 mg/dL (0.5-0.9) H 11/01/23 03:36 GFR Calculation Not Reportable 11/01/23 03:36 Glucose 194 mg/dL (65-115) H 11/01/23 03:36 POC Glucose 273 mg/dL (70-110) H 11/01/23 10:47 Estimat Average Glucose 134 10/30/23 13:27 Hemoglobin A1c 6.3 % (4.0-6.0) H 10/30/23 13:27 Calculated Osmolality 286 mOsm/kg (285-295) 11/01/23 03:36 Lactic Acid 2.9 mmol/L (0.5-2.2) H 10/30/23 13:27 Lactic Acid (Sepsis) 2.6 mmol/L (0.5-2.2) H 10/30/23 18:20 Lactate 1.7 mmol/L (0.5-2.2) 11/01/23 03:36 Uric Acid 6.1 mg/dL (2.4-5.7) H 11/01/23 03:36 Calcium 8.3 mg/dL (8.5-10.5) L 11/01/23 03:36 Phosphorus 3.4 mg/dL (2.5-4.5) 11/01/23 03:36 Magnesium 2.4 mg/dL (1.7-2.3) H 11/01/23 03:36 Total Bilirubin 0.3 mg/dL (0.15-1.2) 11/01/23 03:36 AST 28 U/L (0-32) 11/01/23 03:36 ALT 21 U/L (0-33) 11/01/23 03:36 Alkaline Phosphatase 72 U/L (35-105) 11/01/23 03:36 Creatine Kinase 241 U/L (26-192) H 11/01/23 03:36 Troponin T Baseline 45 ng/L (0-10) H 10/30/23 13:27 Troponin T 120 Minute 201.5 ng/L (0-10) H 10/30/23 15:45 Delta Troponin T 156.5 ABS# (0-10) H* 10/30/23 15:45 Troponin T Hi Sens 6Hr 227.7 ng/L (0-10) H 10/30/23 20:04 Troponin T Hi Sens 6Hr Delta 182.7 ng/L (0-12) H* 10/30/23 20:04 C-Reactive Protein 51.4 mg/L (0.0-4.9) H 11/01/23 03:36 NT-Pro-B Natriuret Pep 1929 pg/mL (0-125) H 11/01/23 03:36 Total Protein 6.4 g/dL (6.6-8.7) L 11/01/23 03:36 Albumin 3.7 g/dL (3.5-5.2) 11/01/23 03:36 Globulin 2.7 g/dL (1.3-4.6) 11/01/23 03:36 Triglycerides 136 mg/dL (0-150) 10/30/23 13:27 Cholesterol 161 mg/dL (0-200) 10/30/23 13:27 LDL Cholesterol, Calc 107 mg/dL (50-129) 10/30/23 13:27 HDL Cholesterol 27 mg/dL (60-100) L 10/30/23 13:27 LDL/HDL Ratio 3.96 RATIO (0.00-3.22) H 10/30/23 13:27 Cholesterol/HDL Ratio 5.96 mg/dL (0.0-4.40) H 10/30/23 13:27 Procalcitonin > 100.00 ng/mL (0-0.5) H 11/01/23 03:36 TSH 0.71 uIU/mL (0.27-4.20) 10/30/23 13:27 Urine Color Yellow (Yellow) 10/30/23 19:45 Urine Appearance Clear (CLEAR) 10/30/23 19:45 Urine pH 5 (5-7) 10/30/23 19:45 Ur Specific [place] 1.010 (1.005-1.030) 10/30/23 19:45 Urine Protein Neg (Negative) 10/30/23 19:45 Urine Glucose (UA) 2+ (Normal) H 10/30/23 19:45 Urine Ketones Negative (Negative) 10/30/23 19:45 Urine Blood 2+ (Negative) H 10/30/23 19:45 Urine Nitrate Negative (Negative) 10/30/23 19:45 Urine Bilirubin Neg (Negative) 10/30/23 19:45 Urine Urobilinogen Norm mg/dL (Negative) 10/30/23 19:45 Ur Leukocyte Esterase Negative (Negative) 10/30/23 19:45 Urine RBC 0-4 /hpf (0-2) H 10/30/23 19:45 Urine WBC 0-4 /hpf (0-5) H 10/30/23 19:45 Ur Squamous Epith Cells Rare /hpf (0-5) 10/30/23 19:45 Ur Transition Epith Cell Rare /hpf 10/30/23 19:45 Amorphous Sediment Trace /hpf 10/30/23 19:45 Urine Bacteria Trace /hpf (NONE) 10/30/23 19:45 Urine Mucus 1+ /hpf 10/30/23 19:45 Nasal Influ A H1 2008 PCR Not detected (NOT DETECT) 10/30/23 18:14 Adenovirus (PCR) Not detected (NOT DETECT) 10/30/23 18:14 C. pneumoniae DNA (PCR) Not detected (NOT DETECT) 10/30/23 18:14 Coronavirus 229E (PCR) Not detected (NOT DETECT) 10/30/23 18:14 Human Metapneumovir PCR Not detected (NOT DETECT) 10/30/23 18:14 Influenza A (H1) PCR Not detected (NOT DETECT) 10/30/23 18:14 Influenza A (H3) PCR Not detected (NOT DETECT) 10/30/23 18:14 Influenza Type A (PCR) Not detected (NOT DETECT) 10/30/23 18:14 Influenza Type B (PCR) Not detected (NOT DETECT) 10/30/23 18:14 M. pneumoniae (PCR) Not detected (NOT DETECT) 10/30/23 18:14 Parainfluenza 1 (PCR) Not detected (NOT DETECT) 10/30/23 18:14 Parainfluenza 2 (PCR) Not detected (NOT DETECT) 10/30/23 18:14 Parainfluenza 3 (PCR) Not detected (NOT DETECT) 10/30/23 18:14 Parainfluenza 4 (PCR) Not detected (NOT DETECT) 10/30/23 18:14 RSV Type A (PCR) Not detected (NOT DETECT) 10/30/23 18:14 RSV Type B (PCR) Not detected (NOT DETECT) 10/30/23 18:14 Entero/Rhino (PCR) Not detected (NOT DETECT) 10/30/23 18:14 SARS-CoV-2 (PCR) Not detected (NOT DETECT) 10/30/23 18:14 Vitals Last Vital Signs Temp 97.5 F L 11/01/23 07:47 Pulse 63 11/01/23 07:47 Resp 15 11/01/23 07:47 BP 112/62 11/01/23 07:47 Pulse Ox 90 11/01/23 07:47 O2 Del Method Nasal Cannula 11/01/23 07:47 O2 Flow Rate 2 10/31/23 10:39 Discharge Plan Discharge Patient Disposition: Home Condition: Stable Prescriptions: New diltiazem HCl [Cardizem CD] 120 mg capsule,extended release 24hr 120 mg PO DAILY 30 Days Qty: 30 0RF prednisone 20 mg Tablet 40 mg PO DAILY 5 Days Qty: 10 0RF aspirin 81 mg Tablet,Delayed Release (Dr/Ec) 81 mg PO DAILY 30 Days Qty: 30 0RF Eliquis 5 mg tablet 5 mg PO BID 30 Days Qty: 60 0RF furosemide [Lasix] 20 mg tablet 20 mg PO DAILY PRN (Reason: edema) 30 Days Qty: 30 0RF Rx Instructions: sob or edema or weight gain >3lbs potassium chloride [Klor-Con 10] 10 mEq tablet extended release 10 meq PO DAILY PRN (Reason: use with lasix) 30 Days Qty: 30 0RF Continued metformin 500 mg tablet 500 mg PO BID Qty: 180 6RF Stool Softener 50 mg capsule 50 mg PO DAILY allopurinol 300 mg tablet 300 mg PO DAILY Qty: 30 1RF (DME) OneTouch Verio test strips Strip See Rx Instructions .Route Qty: 100 3RF Rx Instructions: As directed (DME) blood sugar diagnostic Strip See Rx Instructions .ROUTE .MEDSUPPLY Qty: 50 5RF Rx Instructions: As directed citalopram [Celexa] 10 mg tablet 10 mg PO DAILY Qty: 90 3RF fluconazole 100 mg tablet 100 mg PO DAILY Qty: 90 3RF lorazepam 0.5 mg tablet 0.5 mg PO Q6H PRN (Reason: Severe Nausea or vomiting) Qty: 90 0RF prochlorperazine maleate [Compazine] 10 mg tablet 10 mg PO Q6H PRN (Reason: nausea and vomiting) Qty: 180 5RF sulfamethoxazole-trimethoprim [Bactrim DS] 800-160 mg tablet 1 tab PO .QMWF Qty: 24 5RF valacyclovir 500 mg tablet 500 mg PO BID Qty: 60 5RF Trelegy Ellipta 200-62.5-25 mcg blister with device 1 inh inhalation QAM Changed lisinopril 10 mg tablet 5 mg PO DAILY Qty: 90 3RF Discontinued meloxicam 15 mg tablet 15 mg PO DAILY Discharge Orders: Discharge Order (Routine); Ordered 11/01/23 Ordered By: Jesus Alberto Hickey Referrals: Otto Portillo FNP [Primary Care Provider] - 11/02/23 10:00 am Discharge Diet: Cardiac Discharge Activity: Resume usual activity Patient Instructions: Diltiazem (By mouth) (Cardizem, Cardizem CD, Cardizem LA, Cardizem SR), Lisinopril (By mouth) (Prinivil, Zestril), Furosemide (By mouth) (Lasix), Prednisone (By mouth) (predniSONE Intensol, Prednicot, Deltasone, Ivis), Potassium Chloride (By mouth) (K-Dur, K-Nadia, K-Tab, Cory Mur), Aspirin (By mouth) (Shreya Extra Strength, Shreya Aspirin Children[facility],..., Apixaban (By mouth) (Eliquis), A-fib (Atrial Fibrillation) (DC), Opioid Safety Activity Restrictions/Additional Instructions: - See your primary care provider in the next 24 hours, ? Please have primary care provider recheck your kidney function and your potassium and your hemoglobin in 24 hours, ? I am discharging on Eliquis which is a strong blood thinner, monitor for bloody or black stools please if so go to the emergency room, ? If you feel short of breath, take Lasix 20 milligrams, with potassium, if you need to use it more than a day please go to the emergency room, ? Take prednisone taper as prescribed, ? Please monitor blood sugars closely ? Please do not use ibuprofen or naproxen or meloxicam with Eliquis is a very strong blood thinner ? Please follow-up with Dr. Holley next week Discharge Attestations Time Spent in Discharge Care*: greater than 30 min Status at Discharge: Cognitive status at discharge: cognitively intact, Behavioral status at discharge: cooperative, Quality Metrics Clinical Quality Measures [ No reported AMI, CVA or VTE this stay] Coding Level of Care Code 56380 Total time (in minutes) for Discharge: 45 Diagnoses Atrial fibrillation with RVR I48.91 Allergic reaction T78.40XA Diabetes E11.9 Acute hypoxemic respiratory failure J96.01
[2023-11-01 12:20] VITALS: BP 112/62; PULSE 63; RESP 15; TEMP 36.4; O2SAT 90
== END 2023-11-01 12:30 | disposition home or self-care (01) | DRG 606 ==
LOC: ER 15:05 → CSU 16:28
PROVIDERS: Admitting Provider Family Medicine; Emergency Provider Emergency Medicine; PCP Nurse Practitioner Family; Visit Provider Family Medicine
DX: L50.0 Allergic urticaria (principal); I21.4 Non-ST elevation (NSTEMI) myocardial infarction; J96.01 Acute respiratory failure with hypoxia; N17.9 Acute kidney failure, unspecified; E87.1 Hypo-osmolality and hyponatremia; C91.10 Chronic lymphocytic leukemia of B-cell type not having achieved remission; Z87.891 Personal history of nicotine dependence; I48.91 Unspecified atrial fibrillation; N28.89 Other specified disorders of kidney and ureter; R91.1 Solitary pulmonary nodule; I10 Essential (primary) hypertension; E78.2 Mixed hyperlipidemia; J44.9 Chronic obstructive pulmonary disease, unspecified; E55.9 Vitamin D deficiency, unspecified; E11.9 Type 2 diabetes mellitus without complications; F41.9 Anxiety disorder, unspecified; Q66.91 Congenital deformity of feet, unspecified, right foot; T45.1X5A Adverse effect of antineoplastic and immunosuppressive drugs, initial encounter; E87.70 Fluid overload, unspecified
CPT/HCPCS: 36415; 36416; 36600; 71045; 71275; 80053; 80061; 81001; 82550; 82803; 82962; 83036; 83605; 83735; 83880; 84100; 84145; 84443; 84484; 84550; 85025; 85378; 85610; 86140; 86705; 86706; 87340; 87486; 87581; 87633; 93005; 93306; 94640; 94664; 96360; 96365; 96366; 96367; 96372; 96375; 96376; 96413; 97110; 97161; 97165; 99215; 99285; C9113; G0463; J1100; J1200; J1650; J1815; J1940; J2175; J2920; J3490; J7030; J7040; J7512; J7613; J9301; Q9967

== ENCOUNTER → 2023-11-02 10:46 | Outpatient (BNVA) | payer MEDICARE, MEDICAID, SELFPAY | PROVIDERS: PCP Nurse Practitioner Family; Visit Provider Nurse Practitioner Family | DX: D72.829 Elevated white blood cell count, unspecified (principal); C91.10 Chronic lymphocytic leukemia of B-cell type not having achieved remission | CPT/HCPCS: 80053; 85007; 85025 ==

== ENCOUNTER → 2023-11-07 09:48 | Outpatient (BNVA) | payer MEDICARE, SELFPAY | PROVIDERS: PCP Nurse Practitioner Family; Visit Provider Internal Medicine Cardiovascular Disease | DX: C91.10 Chronic lymphocytic leukemia of B-cell type not having achieved remission (principal); E11.9 Type 2 diabetes mellitus without complications; Z79.84 Long term (current) use of oral hypoglycemic drugs; I48.91 Unspecified atrial fibrillation; Z79.01 Long term (current) use of anticoagulants; Z79.82 Long term (current) use of aspirin; R79.89 Other specified abnormal findings of blood chemistry; I10 Essential (primary) hypertension; J44.9 Chronic obstructive pulmonary disease, unspecified; Z87.891 Personal history of nicotine dependence | CPT/HCPCS: 99203 ==

== ENCOUNTER → 2023-11-23 07:42 | Outpatient (BNVA) | payer MEDICARE, SELFPAY | PROVIDERS: PCP Nurse Practitioner Family; Visit Provider Internal Medicine Pulmonary Disease | DX: R91.1 Solitary pulmonary nodule (principal); Z09 Encounter for follow-up examination after completed treatment for conditions other than malignant neoplasm; J43.2 Centrilobular emphysema; Z87.891 Personal history of nicotine dependence | CPT/HCPCS: 99204 ==

== ENCOUNTER 2023-12-04 07:48 | Oncology outpatient (recurring) (ONCR) | payer MEDICARE, MEDICAID, SELFPAY ==
[2023-12-04 08:11] VITALS: BP 125/63; PULSE 59; RESP 18; TEMP 36.8; O2SAT 94
[2023-12-04 08:21] LABS: Basophils # 0.1 10^3/uL (0.0-0.1); Basophils % 0.2 %; Eosinophils # 0.2 10^3/uL (0.0-0.8); Eosinophils % 0.3 %; Hematocrit 42.1 % (36-47); Lymphocytes # 50.6 10^3/uL (0.8-4.8); Lymphocytes % 88.3 %; Mean Corpuscular HGB Conc 31.8 g/dL (30-55); Mean Corpuscular Hemoglobin 30.9 pg (27-33); Mean Corpuscular Volume 97.2 fl (85-98); Mean Platelet Volume 9.6 fL (7.4-10.4); Monocytes # 1.3 10^3/uL (0.2-0.9); Monocytes % 2.2 %; Neutrophils # 5.01 10^3/uL (1.8-7.7); Neutrophils % 8.8 %; Nucleated Red Blood Cells % 0 %; Platelet Count 357 10^3/cmm (157-399); Positive M 1; Red Blood Count 4.33 10^6/uL (3.85-5.65); Red Cell Distribution Width 15.5 % (12.1-15.1)
[2023-12-04 08:37] LABS: Alanine Aminotransferase 12 U/L (0-33); Albumin Level 4.3 g/dL (3.5-5.2); Alkaline Phosphatase 87 U/L (35-105); Anion Gap 15.5 (5-19); Aspartate Amino Transferase 15 U/L (0-32); Blood Urea Nitrogen 23 mg/dL (8-23); Calcium 10.3 mg/dL (8.5-10.5); Carbon Dioxide 25 mmol/L (22-29); Chloride 102 mmol/L (98-107); Glucose 113 mg/dL (65-115); Osmolality Calculated 290 mOsm/kg (285-295); Potassium 4.5 mmol/L (3.5-5.1); Sodium 138 mmol/L (136-145); Total Bilirubin 0.3 mg/dL (0.15-1.2); Total Protein 7.3 g/dL (6.6-8.7)
== END 2023-12-26 23:59 | disposition home or self-care (01) ==
PROVIDERS: PCP Nurse Practitioner Family; Visit Provider Internal Medicine Medical Oncology
DX: Z53.9 Procedure and treatment not carried out, unspecified reason (principal); Z51.11 Encounter for antineoplastic chemotherapy; C91.10 Chronic lymphocytic leukemia of B-cell type not having achieved remission; N28.89 Other specified disorders of kidney and ureter; Z79.899 Other long term (current) drug therapy; Z87.891 Personal history of nicotine dependence; N83.209 Unspecified ovarian cyst, unspecified side
CPT/HCPCS: 36415; 80053; 85025; 99214

== ENCOUNTER 2024-01-08 11:22 | Outpatient (CLI) | payer MEDICARE, MEDICAID, SELFPAY ==
--- NOTE | 2024-01-08 13:00 | PETR_ITS ---
PROCEDURE INFORMATION: Exam: PET/CT Skull Base to Mid-thigh Exam date and time: 01/08/2024 1:10 PM Age: 73 years old Clinical indication: Abnormal findings; Misha nodule LABS AND CLINICAL REPORTS: Glucose: 122 mg/dl Treatment strategy for malignancy (PET staging): Initial Staging (PI) TECHNIQUE: Imaging protocol: Following at least four-hour fasting and following the injection of radiopharmaceutical, low dose CT images were obtained. Then, PET images were obtained. Attenuation corrected images were constructed using the CT scan. Fused images of PET and CT were reviewed. The standardized uptake values (SUV) reported below are maximum values within a region of interest, expressed in gm/ml. Exam includes orbital meatal line to mid-thigh. Radiopharmaceutical: 12.9 mCi F-18 FDG (Fluorodeoxyglucose), IV. Time of imaging post radiopharmaceutical administration: 1 hour Injection site: Right antecubital COMPARISON: CT chest abdpel w/*[id number] 06/26/2023 12:18 PM FINDINGS: Brain: Visualized brain has normal physiologic uptake. Pharynx: No abnormal uptake. Larynx: No abnormal uptake. Lungs, pleura and trachea: A left upper lobe nodule seen on prior study now measures 7 mm in size has a max SUV measuring 1.6 equal to the background mediastinal uptake. There is an additional 7 mm nodule in the superior aspect of the left lower lobe with minimal FDG uptake with a maximum SUV 1.2 less than the background mediastinal uptake. Emphysematous changes of the lungs. Heart: Normal physiologic uptake. Mediastinal space: No abnormal uptake. Liver: No abnormal uptake. Gallbladder and bile ducts: No abnormal uptake. Pancreas: No abnormal uptake. Spleen: No abnormal uptake. Adrenal glands: No abnormal uptake. Kidneys and ureters: 4 cm mass again noted in the upper pole of the left kidney. No significant FDG uptake in the mass, not unexpected for renal cell carcinoma. Stomach and bowel: No abnormal uptake. Reproductive: 7 cm left ovarian cyst with no FDG avidity. Vasculature: No abnormal uptake. Lymph nodes: Symmetric prominence of the axillary nodes and prominent retroperitoneal/periaortic nodes demonstrate no FDG avidity. No abnormal uptake throughout the rest of the body. Bones/joints: No abnormal uptake in the visualized axial and appendicular skeleton. Soft tissues: No abnormal uptake in the visualized head, neck, chest, abdomen, pelvis, and extremities. PET/PET skulltothigh INITIAL [id number] IMPRESSION: 1. No FDG avidity of a pair of 7 mm nodules in the left upper and lower lobes. 2. Prominent bilateral axillary nodes and retroperitoneal/periaortic nodes demonstrate no FDG avidity. 3. Interval increase in size of a now 4 cm mass in the left upper kidney consistent with renal cell carcinoma.
== END 2024-01-08 11:23 | disposition home or self-care (01) ==
LOC: RAD 11:22
PROVIDERS: PCP Nurse Practitioner Family; Visit Provider Internal Medicine Pulmonary Disease
DX: R91.8 Other nonspecific abnormal finding of lung field (principal); N28.89 Other specified disorders of kidney and ureter
CPT/HCPCS: 78815; A9552

== ENCOUNTER 2024-01-15 09:36 | Outpatient (CLI) | payer MEDICARE, MEDICAID, SELFPAY ==
[2024-01-15 10:06] VITALS: PULSE 76; RESP 18; O2SAT 96
[2024-01-15] MEDS: albuterol 2.5 mg/3 mL Neb INHALATION (10:06)
[2024-01-15 10:11] VITALS: PULSE 79
== END 2024-01-15 09:37 | disposition home or self-care (01) ==
LOC: RT 09:37
PROVIDERS: PCP Nurse Practitioner Family; Visit Provider Internal Medicine Pulmonary Disease
DX: R91.1 Solitary pulmonary nodule (principal); Z87.891 Personal history of nicotine dependence; R94.2 Abnormal results of pulmonary function studies
CPT/HCPCS: 94060; 94618; 94726; 94729; J7613

== ENCOUNTER → 2024-01-25 10:30 | Outpatient (BNVA) | payer MEDICARE, MEDICAID, SELFPAY | PROVIDERS: PCP Nurse Practitioner Family; Visit Provider Internal Medicine Pulmonary Disease | DX: R91.1 Solitary pulmonary nodule (principal); J43.2 Centrilobular emphysema; Z99.81 Dependence on supplemental oxygen; Z87.891 Personal history of nicotine dependence | CPT/HCPCS: 99214 ==

== ENCOUNTER 2024-02-28 09:51 | Outpatient (CLI) | payer MEDICARE, SELFPAY ==
[2024-02-28 10:15] VITALS: O2SAT 87; O2SAT 93; O2SAT 96
== END 2024-02-28 09:52 | disposition home or self-care (01) ==
PROVIDERS: PCP Nurse Practitioner Family; Visit Provider Internal Medicine Pulmonary Disease
DX: Z01.89 Encounter for other specified special examinations (principal)
CPT/HCPCS: 94760

== ENCOUNTER 2024-05-14 08:37 | Oncology outpatient (recurring) (ONCR) | payer MEDICARE, SELFPAY ==
[2024-05-14 09:03] LABS: Basophils # 0.1 10^3/uL (0.0-0.1); Basophils % 0.1 %; Eosinophils # 0.2 10^3/uL (0.0-0.8); Eosinophils % 0.2 %; Hematocrit 41.4 % (36-47); Lymphocytes # 99.8 10^3/uL (0.8-4.8); Lymphocytes % 93.6 %; Mean Corpuscular HGB Conc 31.4 g/dL (30-55); Mean Corpuscular Hemoglobin 29.8 pg (27-33); Mean Platelet Volume 9.9 fL (7.4-10.4); Monocytes # 1.8 10^3/uL (0.2-0.9); Monocytes % 1.7 %; Neutrophils # 4.58 10^3/uL (1.8-7.7); Neutrophils % 4.3 %; Nucleated Red Blood Cells % 0 %; Platelet Count 268 10^3/cmm (157-399); Red Blood Count 4.36 10^6/uL (3.85-5.65); Red Cell Distribution Width 14.4 % (12.1-15.1)
[2024-05-14 09:25] LABS: Alanine Aminotransferase 15 U/L (0-33); Albumin Level 4.5 g/dL (3.5-5.2); Alkaline Phosphatase 103 U/L (35-105); Anion Gap 15.1 (5-19); Aspartate Amino Transferase 18 U/L (0-32); Blood Urea Nitrogen 29 mg/dL (8-23); Calcium 10.3 mg/dL (8.5-10.5); Carbon Dioxide 27 mmol/L (22-29); Chloride 106 mmol/L (98-107); Globulin 2.8 g/dL (1.3-4.6); Glucose 113 mg/dL (65-115); Lactate Dehydrogenase 181 U/L (135-214); Osmolality Calculated 303 mOsm/kg (285-295); Potassium 5.1 mmol/L (3.5-5.1); Sodium 143 mmol/L (136-145); Total Bilirubin 0.2 mg/dL (0.15-1.2); Total Protein 7.3 g/dL (6.6-8.7)
[2024-05-14 09:42] LABS: White Blood Count 106.64 10^3/uL (3.29-11.43)
[2024-05-14 09:43] LABS: Slide Review Slide Review Perform
== END 2024-05-25 23:59 | disposition home or self-care (01) ==
LOC: ONCMED 08:37
PROVIDERS: PCP Nurse Practitioner Family; Visit Provider Internal Medicine Medical Oncology
DX: C91.10 Chronic lymphocytic leukemia of B-cell type not having achieved remission (principal); N28.89 Other specified disorders of kidney and ureter; R91.1 Solitary pulmonary nodule
CPT/HCPCS: 36415; 80053; 83615; 85025; 99214

== ENCOUNTER 2024-08-18 11:04 | Oncology outpatient (recurring) (ONCR) | payer MEDICARE, SELFPAY ==
[2024-08-11 13:12] LABS: Basophils # 0.2 10^3/uL (0.0-0.1); Basophils % 0.1 %; Eosinophils # 0.2 10^3/uL (0.0-0.8); Eosinophils % 0.1 %; Hematocrit 42.9 % (36-47); Lymphocytes % 94.1 %; Mean Corpuscular HGB Conc 30.5 g/dL (30-55); Mean Corpuscular Volume 98.2 fl (85-98); Mean Platelet Volume 9.8 fL (7.4-10.4); Monocytes # 3.2 10^3/uL (0.2-0.9); Neutrophils # 5.49 10^3/uL (1.8-7.7); Neutrophils % 3.5 %; Nucleated Red Blood Cells % 0 %; Platelet Count 284 10^3/cmm (157-399); Red Blood Count 4.37 10^6/uL (3.85-5.65); Red Cell Distribution Width 13.7 % (12.1-15.1)
[2024-08-11 13:28] LABS: Alanine Aminotransferase 16 U/L (0-33); Albumin Level 4.6 g/dL (3.5-5.2); Alkaline Phosphatase 102 U/L (35-105); Anion Gap 15.7 (5-19); Aspartate Amino Transferase 18 U/L (0-32); Blood Urea Nitrogen 32 mg/dL (8-23); Calcium 9.9 mg/dL (8.5-10.5); Carbon Dioxide 27 mmol/L (22-29); Chloride 99 mmol/L (98-107); Globulin 2.6 g/dL (1.3-4.6); Glucose 102 mg/dL (65-115); Lactate Dehydrogenase 181 U/L (135-214); Osmolality Calculated 289 mOsm/kg (285-295); Potassium 5.7 mmol/L (3.5-5.1); Sodium 136 mmol/L (136-145); Total Bilirubin 0.3 mg/dL (0.15-1.2); Total Protein 7.2 g/dL (6.6-8.7)
[2024-08-11 13:31] LABS: Lymphocytes # 149.8 10^3/uL (0.8-4.8)
[2024-08-11 13:32] LABS: White Blood Count 159.21 10^3/uL (3.29-11.43)
[2024-08-11 13:34] LABS: Slide Review Slide Review Perform
[2024-08-11 17:14] LABS: Uric Acid 7.9 mg/dL (2.4-5.7)
--- NOTE | 2024-08-18 11:30 | US_ITS ---
WS: [id number] RENAL ULTRASOUND HISTORY: s/p left nephrectomy, rising creatinine COMPARISON: None available. TECHNIQUE: 2-D and color Doppler imaging of the kidney submitted. Right kidney: 9.5 cm x 3.9 cm x 4.3 cm. Cortex: 1.0 cm Normal echogenicity with no hydronephrosis or mass. Left kidney: Status post nephrectomy for renal cell carcinoma. No mass in the renal bed. Aorta: Normal. Urinary Bladder: Normal distention. US/US renal BI* [id number] IMPRESSION: 1. Normal RIGHT kidney. 2. Status post LEFT nephrectomy.
== END 2024-08-25 23:59 | disposition home or self-care (01) ==
PROVIDERS: Internal Medicine Medical Oncology; PCP Nurse Practitioner Family; Visit Provider Nurse Practitioner Family
DX: C91.10 Chronic lymphocytic leukemia of B-cell type not having achieved remission (principal); C64.9 Malignant neoplasm of unspecified kidney, except renal pelvis; Z90.5 Acquired absence of kidney
CPT/HCPCS: 36415; 76770; 80053; 83615; 84550; 85025; 99214

== ENCOUNTER → 2024-08-25 08:45 | Outpatient (BNVA) | payer MEDICARE, SELFPAY | PROVIDERS: PCP Nurse Practitioner Family; Visit Provider Nurse Practitioner Family | DX: I10 Essential (primary) hypertension (principal); E11.9 Type 2 diabetes mellitus without complications; E55.9 Vitamin D deficiency, unspecified; E78.2 Mixed hyperlipidemia | CPT/HCPCS: 80053; 80061; 81003; 82306; 83036; 83721; 84443; 85007; 85027 ==

== ENCOUNTER → 2024-09-18 09:01 | Outpatient (BNVA) | payer MEDICARE, SELFPAY | PROVIDERS: PCP Nurse Practitioner Family; Visit Provider Nurse Practitioner Family | DX: C64.9 Malignant neoplasm of unspecified kidney, except renal pelvis (principal) | CPT/HCPCS: 80053 ==

== ENCOUNTER 2024-11-13 13:43 | Oncology outpatient (recurring) (ONCR) | payer MEDICARE, SELFPAY ==
[2024-11-13 14:31] LABS: Basophils # 0.2 10^3/uL (0.0-0.1); Basophils % 0.1 %; Eosinophils # 0.3 10^3/uL (0.0-0.8); Eosinophils % 0.1 %; Hematocrit 40.7 % (36-47); Lymphocytes % 94.9 %; Mean Corpuscular HGB Conc 29.2 g/dL (30-55); Mean Corpuscular Hemoglobin 29.2 pg (27-33); Mean Platelet Volume 9.7 fL (7.4-10.4); Monocytes # 3.1 10^3/uL (0.2-0.9); Monocytes % 1.6 %; Neutrophils # 5.68 10^3/uL (1.8-7.7); Neutrophils % 3.1 %; Nucleated Red Blood Cells % 0 %; Platelet Count 276 10^3/cmm (157-399); Red Blood Count 4.07 10^6/uL (3.85-5.65); Red Cell Distribution Width 13.7 % (12.1-15.1)
[2024-11-13 14:47] LABS: Alanine Aminotransferase 17 U/L (0-33); Albumin Level 4.4 g/dL (3.5-5.2); Alkaline Phosphatase 109 U/L (35-105); Anion Gap 18.2 (5-19); Aspartate Amino Transferase 18 U/L (0-32); Blood Urea Nitrogen 28 mg/dL (8-23); Calcium 10.3 mg/dL (8.5-10.5); Carbon Dioxide 24 mmol/L (22-29); Chloride 99 mmol/L (98-107); Creatinine Clr Calc Pharmacy 31.3417; Globulin 2.5 g/dL (1.3-4.6); Glucose 97 mg/dL (65-115); Lymphocytes # 181.8 10^3/uL (0.8-4.8); Osmolality Calculated 285 mOsm/kg (285-295); Potassium 6.2 mmol/L (3.5-5.1); Slide Review Slide Review Perform; Sodium 135 mmol/L (136-145); Total Bilirubin 0.2 mg/dL (0.15-1.2); Total Protein 6.9 g/dL (6.6-8.7)
[2024-11-13 14:48] LABS: Lactate Dehydrogenase 193 U/L (135-214); White Blood Count 191.52 10^3/uL (3.29-11.43)
== END 2024-11-25 23:59 | disposition home or self-care (01) ==
PROVIDERS: PCP Nurse Practitioner Family; Visit Provider Nurse Practitioner Family
DX: C91.10 Chronic lymphocytic leukemia of B-cell type not having achieved remission (principal); C64.2 Malignant neoplasm of left kidney, except renal pelvis; Z90.5 Acquired absence of kidney; Z87.891 Personal history of nicotine dependence; Z79.899 Other long term (current) drug therapy
CPT/HCPCS: 80053; 83615; 85025; 99213

== ENCOUNTER 2024-12-26 10:02 | Oncology outpatient (recurring) (ONCR) | payer MEDICARE, SELFPAY ==
[2024-12-11 09:28] LABS: Basophils # 0.2 10^3/uL (0.0-0.1); Basophils % 0.1 %; Eosinophils # 0.3 10^3/uL (0.0-0.8); Eosinophils % 0.2 %; Hematocrit 42.4 % (36-47); Lymphocytes % 95.2 %; Mean Corpuscular HGB Conc 29.7 g/dL (30-55); Mean Corpuscular Hemoglobin 29.2 pg (27-33); Mean Corpuscular Volume 98.4 fl (85-98); Monocytes # 3.6 10^3/uL (0.2-0.9); Monocytes % 1.6 %; Neutrophils % 2.7 %; Nucleated Red Blood Cells % 0 %; Platelet Count 265 10^3/cmm (157-399); Red Blood Count 4.31 10^6/uL (3.85-5.65); Red Cell Distribution Width 14.5 % (12.1-15.1)
[2024-12-11 09:47] LABS: Erythrocyte Sedimentation Rate 25 mm/hr (0-15)
[2024-12-11 09:54] LABS: Alanine Aminotransferase 18 U/L (0-33); Albumin Level 4.3 g/dL (3.5-5.2); Alkaline Phosphatase 119 U/L (35-105); Anion Gap 20.9 (5-19); Aspartate Amino Transferase 19 U/L (0-32); Blood Urea Nitrogen 25 mg/dL (8-23); Calcium 10.3 mg/dL (8.5-10.5); Carbon Dioxide 22 mmol/L (22-29); Chloride 95 mmol/L (98-107); Globulin 2.8 g/dL (1.3-4.6); Glucose 142 mg/dL (65-115); Immunoglobulin IGA 98 mg/dL (70-400); Immunoglobulin IGG 849 mg/dL (700-1600); Immunoglobulin IGM 38 mg/dL (40-230); Lactate Dehydrogenase 185 U/L (135-214); Osmolality Calculated 283 mOsm/kg (285-295); Potassium 4.9 mmol/L (3.5-5.1); Sodium 133 mmol/L (136-145); Total Bilirubin 0.3 mg/dL (0.15-1.2); Total Protein 7.1 g/dL (6.6-8.7); Uric Acid 8.3 mg/dL (2.4-5.7)
[2024-12-11 10:13] LABS: Lymphocytes # 207.4 10^3/uL (0.8-4.8); White Blood Count 217.94 10^3/uL (3.29-11.43)
[2024-12-11 10:15] LABS: Slide Review Slide Review Perform
[2024-12-12 07:44] LABS: PROTEIN, TOTAL 6.9 g/dL (6.1-8.1)
[2024-12-12 23:09] LABS: ALBUMIN 4.3 g/dL (3.8-4.8); ALPHA 1 GLOBULIN 0.3 g/dL (0.2-0.3); ALPHA 2 GLOBULIN 0.8 g/dL (0.5-0.9); BETA 1 GLOBULIN 0.5 g/dL (0.4-0.6); BETA 2 GLOBULIN 0.4 g/dL (0.2-0.5); GAMMA GLOBULIN 0.7 g/dL (0.8-1.7)
--- NOTE | 2024-12-26 10:30 | PETR_ITS ---
PROCEDURE INFORMATION: Exam: PET/CT Skull Base to Mid-thigh Exam date and time: 12/26/2024 11:04 AM Age: 74 years old Clinical indication: Symptoms: Diffuse lymphadenopathy; Lung nodule; ; Prior surgery; Surgery date: 6+ months; Surgery type: Left kidney removed; HX of left kidney cancer. PT states history of leukemia; Additional info: Diffuse lymphadenopathy; Lung nodule; Compare to previous LABS AND CLINICAL REPORTS: Glucose: 142 mg/dl Treatment strategy for malignancy (PET staging): Restaging (PS) TECHNIQUE: Imaging protocol: Following at least four-hour fasting and following the injection of radiopharmaceutical, low dose CT images were obtained. Then, PET images were obtained. Attenuation corrected images were constructed using the CT scan. Fused images of PET and CT were reviewed. The standardized uptake values (SUV) reported below are maximum values within a region of interest, expressed in gm/ml. Exam includes orbital meatal line to mid-thigh. SUV normalization method: BodyWeight Radiopharmaceutical: 11.65 mCi F-18 FDG (Fluorodeoxyglucose), IV. Time of imaging post radiopharmaceutical administration: 50 minutes Injection site: RIGHT AC COMPARISON: PT PET skull to thigh INIT [id number] 01/08/2024, CT chest abdomen pelvis 06/26/2023 FINDINGS: Brain: Normal physiologic uptake. Pharynx: No abnormal uptake. Larynx: No abnormal uptake. Lungs, pleura and trachea: New 2 x 1.4 cm right upper lobe perihilar nodule with spiculated margins measures 13.4 SUV. Irregularly shaped nodule in the left upper lobe increased from 1 cm to 1.4 cm with new increased uptake of 4.7 SUV. Lung nodule in the superior segment of the left lower lobe increased from 0.8 cm to 1.2 cm with borderline uptake of 2.8 SUV. Persistent severe centrilobular emphysema. No pleural effusion. Heart: Unremarkable. Mediastinal space: See below in lymph nodes . Stable small hiatal hernia. Liver: No abnormal uptake. Maximum uptake is 4.8 SUV. Gallbladder and biliary ducts: No abnormal uptake. No calcified gallstones. Pancreas: No abnormal uptake. Spleen: No abnormal uptake. No splenomegaly. Adrenal glands: No abnormal uptake. No nodules. Kidneys and ureters: Normal physiologic uptake in the solitary right kidney. Status post left nephrectomy. Stomach and bowel: Diffusely increased uptake in the right and left colon with no corresponding CT abnormality is likely benign. Stable extensive diverticulosis of the sigmoid colon. Intraperitoneal and retroperitoneal spaces: No abnormal uptake. No ascites. Urinary bladder: Normal physiologic uptake. Reproductive: No abnormal uptake. Persistent simple cyst in the left ovary measures 8.2 x 5.9 cm, previously 7.3 x 6 cm in 2023 and 7.3 x 5.4 cm in 2022 represents benign finding. Persistent nodularity of the uterine contour suggestive of benign findings (fibroids). Vasculature: No abnormal uptake. No aortic aneurysm. Lymph nodes: Multicompartmental bilateral symmetric lymphadenopathy in the neck including submandibular, jugular, posterior neck and supraclavicular lymph nodes (the largest short axis of 1.2 cm, the highest uptake of 7.8 SUV), both axillas (larger on the left side with a short axis of 2.5 cm and the highest uptake of 6.3 SUV, smaller on the right side with the short axis of 2 cm and the highest uptake of 7.7 SUV), mediastinum (the largest short axis in the subcarinal lymph nodes of 2.1 cm, the highest uptake of 7 SUV), retroperitoneum (the short axis of 1.3 cm, the highest uptake of 4.7 SUV) and pelvis (short axis of 2.3 cm on the right side, uptake 5.3 SUV on the right side and 4.9 SUV on the left side). Stable sequela of exposure to granulomatous disease with calcified granulomas within normal size left mediastinal and left hilar lymph nodes. Skeleton: No abnormal uptake in the visualized axial and appendicular skeleton. Soft tissues: Small FDG avid nodule in the right posterior pararenal space above the iliac fossa (series 202, image 138) measures 1.3 x 1 cm/3.5 SUV versus 0.8 x 0.6 cm/0.9 SUV on the prior exam is suggestive of extranodal malignant focus. Benign muscular uptake in the right infraspinatus muscle. PET/PET skull to thigh SUBS [id number] IMPRESSION: In comparison with 01/08/2024 there are new and progressive findings as follows: 1. New 2 x 1.4 cm lung nodule in the right upper lobe with intense uptake of 13.4 SUV, and interval increase in size and uptake in a couple of previously present small nodules in the left upper and left lower lobes currently with the highest uptake of 4.7 SUV. 2. Interval increase in size of multicompartmental lymphadenopathy in the neck, axillas, mediastinum and in the pelvis currently with new highest uptake of 7.8 SUV in the neck. 3. Progressive small possibly extranodal malignant focus in the right posterior pararenal space.
== END 2024-12-26 23:59 | disposition home or self-care (01) ==
LOC: RAD 10:02 → ONCMED 10:03
PROVIDERS: PCP Nurse Practitioner Family; Visit Provider Internal Medicine
DX: C64.2 Malignant neoplasm of left kidney, except renal pelvis (principal); R91.1 Solitary pulmonary nodule; R59.1 Generalized enlarged lymph nodes; R91.8 Other nonspecific abnormal finding of lung field; R59.0 Localized enlarged lymph nodes; R93.5 Abnormal findings on diagnostic imaging of other abdominal regions, including retroperitoneum
CPT/HCPCS: 36415; 78815; 80053; 82784; 83615; 84155; 84165; 84550; 85025; 85651; 86880; 99213; 99215; A9552

== ENCOUNTER 2025-01-08 08:15 | Oncology outpatient (recurring) (ONCR) | payer MEDICARE, SELFPAY ==
[2025-01-01 09:50] LABS: Basophils # 0.2 10^3/uL (0.0-0.1); Basophils % 0.1 %; Eosinophils # 0.4 10^3/uL (0.0-0.8); Eosinophils % 0.2 %; Lymphocytes % 93.1 %; Mean Corpuscular HGB Conc 29.5 g/dL (30-55); Mean Corpuscular Hemoglobin 29.1 pg (27-33); Mean Corpuscular Volume 98.5 fl (85-98); Mean Platelet Volume 10.1 fL (7.4-10.4); Monocytes # 4.4 10^3/uL (0.2-0.9); Monocytes % 2.4 %; Neutrophils # 7.16 10^3/uL (1.8-7.7); Neutrophils % 3.9 %; Nucleated Red Blood Cells % 0 %; Platelet Count 247 10^3/cmm (157-399); Red Blood Count 4.06 10^6/uL (3.85-5.65); Red Cell Distribution Width 13.9 % (12.1-15.1); Reticulocyte % 1.3 % (0.5-2.0)
[2025-01-01 10:03] LABS: Erythrocyte Sedimentation Rate 20 mm/hr (0-15)
[2025-01-01 10:04] LABS: Alanine Aminotransferase 15 U/L (0-33); Albumin Level 4.1 g/dL (3.5-5.2); Alkaline Phosphatase 104 U/L (35-105); Anion Gap 18.8 (5-19); Aspartate Amino Transferase 19 U/L (0-32); Blood Urea Nitrogen 35 mg/dL (8-23); Calcium 10.1 mg/dL (8.5-10.5); Carbon Dioxide 21 mmol/L (22-29); Chloride 101 mmol/L (98-107); Creatinine Clr Calc Pharmacy 27.8867; Globulin 2.8 g/dL (1.3-4.6); Glucose 170 mg/dL (65-115); Osmolality Calculated 292 mOsm/kg (285-295); Potassium 5.8 mmol/L (3.5-5.1); Sodium 135 mmol/L (136-145); Total Bilirubin 0.2 mg/dL (0.15-1.2); Total Protein 6.9 g/dL (6.6-8.7); Uric Acid 5.6 mg/dL (2.4-5.7)
[2025-01-01 10:20] LABS: Lactate Dehydrogenase 256 U/L (135-214)
[2025-01-01 10:29] LABS: Lymphocytes # 171.9 10^3/uL (0.8-4.8); White Blood Count 184.64 10^3/uL (3.29-11.43)
[2025-01-01 10:31] LABS: Slide Review Slide Review Perform
[2025-01-08 08:38] LABS: Basophils # 0.2 10^3/uL (0.0-0.1); Basophils % 0.1 %; Eosinophils # 0.1 10^3/uL (0.0-0.8); Eosinophils % 0.1 %; Hematocrit 40.6 % (36-47); Lymphocytes % 96.4 %; Mean Corpuscular HGB Conc 29.6 g/dL (30-55); Mean Corpuscular Hemoglobin 28.9 pg (27-33); Mean Corpuscular Volume 97.8 fl (85-98); Mean Platelet Volume 10.2 fL (7.4-10.4); Monocytes # 2.9 10^3/uL (0.2-0.9); Monocytes % 1.5 %; Neutrophils # 3.48 10^3/uL (1.8-7.7); Neutrophils % 1.8 %; Nucleated Red Blood Cells % 0 %; Platelet Count 262 10^3/cmm (157-399); Positive M 1; Red Blood Count 4.15 10^6/uL (3.85-5.65); Red Cell Distribution Width 14.1 % (12.1-15.1)
[2025-01-08 08:43] LABS: Erythrocyte Sedimentation Rate 2 mm/hr (0-15)
[2025-01-08 08:59] LABS: Alanine Aminotransferase 20 U/L (0-33); Albumin Level 4.3 g/dL (3.5-5.2); Alkaline Phosphatase 115 U/L (35-105); Anion Gap 17.1 (5-19); Aspartate Amino Transferase 21 U/L (0-32); Blood Urea Nitrogen 37 mg/dL (8-23); Calcium 10.4 mg/dL (8.5-10.5); Carbon Dioxide 22 mmol/L (22-29); Chloride 101 mmol/L (98-107); Creatinine Clr Calc Pharmacy 29.4359; Globulin 2.9 g/dL (1.3-4.6); Glucose 173 mg/dL (65-115); Osmolality Calculated 293 mOsm/kg (285-295); Potassium 5.1 mmol/L (3.5-5.1); Sodium 135 mmol/L (136-145); Total Bilirubin 0.3 mg/dL (0.15-1.2); Total Protein 7.2 g/dL (6.6-8.7)
[2025-01-08 09:21] LABS: Lymphocytes # 178.7 10^3/uL (0.8-4.8)
[2025-01-08 09:22] LABS: Slide Review Slide Review Perform; White Blood Count 185.48 10^3/uL (3.29-11.43)
[2025-01-08 09:33] LABS: Immunoglobulin IGA 93 mg/dL (70-400); Immunoglobulin IGG 849 mg/dL (700-1600); Immunoglobulin IGM 34 mg/dL (40-230); Lactate Dehydrogenase 228 U/L (135-214)
[2025-01-09 18:50] LABS: ALBUMIN 4.4 g/dL (3.8-4.8); ALPHA 1 GLOBULIN 0.3 g/dL (0.2-0.3); ALPHA 2 GLOBULIN 0.8 g/dL (0.5-0.9); BETA 1 GLOBULIN 0.4 g/dL (0.4-0.6); BETA 2 GLOBULIN 0.3 g/dL (0.2-0.5); GAMMA GLOBULIN 0.7 g/dL (0.8-1.7)
== END 2025-01-23 23:59 | disposition home or self-care (01) ==
PROVIDERS: PCP Nurse Practitioner Family; Visit Provider Internal Medicine
DX: C64.2 Malignant neoplasm of left kidney, except renal pelvis; C91.10 Chronic lymphocytic leukemia of B-cell type not having achieved remission; R91.8 Other nonspecific abnormal finding of lung field; Z79.899 Other long term (current) drug therapy; Z90.5 Acquired absence of kidney; Z53.9 Procedure and treatment not carried out, unspecified reason
CPT/HCPCS: 36415; 80053; 82784; 83010; 83615; 84155; 84165; 84550; 85025; 85045; 85651; 86880; 99214

== ENCOUNTER → 2025-01-28 10:19 | Outpatient (BNVA) | payer MEDICARE, SELFPAY | PROVIDERS: PCP Nurse Practitioner Family; Visit Provider Internal Medicine | DX: N28.89 Other specified disorders of kidney and ureter (principal); C64.2 Malignant neoplasm of left kidney, except renal pelvis; C91.10 Chronic lymphocytic leukemia of B-cell type not having achieved remission | CPT/HCPCS: 80053; 82784; 83010; 83615; 84155; 84165; 84550; 85025; 85045; 85651; 86880 ==

== ENCOUNTER 2025-02-05 11:56 | Oncology outpatient (recurring) (ONCR) | payer MEDICARE, SELFPAY ==
[2025-02-05 12:28] LABS: Basophils # 0.1 10^3/uL (0.0-0.1); Eosinophils # 0.2 10^3/uL (0.0-0.8); Eosinophils % 0.1 %; Hematocrit 35.7 % (36-47); Lymphocytes % 95.1 %; Mean Corpuscular HGB Conc 28.3 g/dL (30-55); Mean Corpuscular Hemoglobin 28.6 pg (27-33); Mean Corpuscular Volume 101.1 fl (85-98); Mean Platelet Volume 10.2 fL (7.4-10.4); Monocytes # 1.4 10^3/uL (0.2-0.9); Monocytes % 0.6 %; Neutrophils % 3.9 %; Nucleated Red Blood Cells % 0 %; Platelet Count 256 10^3/cmm (157-399); Red Blood Count 3.53 10^6/uL (3.85-5.65); Red Cell Distribution Width 17.9 % (12.1-15.1)
[2025-02-05 12:43] LABS: Alanine Aminotransferase 16 U/L (0-33); Albumin Level 4.2 g/dL (3.5-5.2); Alkaline Phosphatase 107 U/L (35-105); Anion Gap 18.2 (5-19); Aspartate Amino Transferase 17 U/L (0-32); Blood Urea Nitrogen 34 mg/dL (8-23); Calcium 9.8 mg/dL (8.5-10.5); Carbon Dioxide 18 mmol/L (22-29); Chloride 97 mmol/L (98-107); Glucose 91 mg/dL (65-115); Lactate Dehydrogenase 169 U/L (135-214); Osmolality Calculated 273 mOsm/kg (285-295); Potassium 5.2 mmol/L (3.5-5.1); Sodium 128 mmol/L (136-145); Total Bilirubin 0.5 mg/dL (0.15-1.2); Total Protein 7.2 g/dL (6.6-8.7); Uric Acid 7.9 mg/dL (2.4-5.7)
[2025-02-05 13:21] LABS: Lymphocytes # 219.9 10^3/uL (0.8-4.8)
[2025-02-05 13:22] LABS: Slide Review Slide Review Perform
[2025-02-05 13:30] LABS: Erythrocyte Sedimentation Rate 40 mm/hr (0-15)
== END 2025-02-23 23:59 | disposition home or self-care (01) ==
PROVIDERS: PCP Nurse Practitioner Family; Visit Provider Internal Medicine
DX: C64.2 Malignant neoplasm of left kidney, except renal pelvis (principal); C91.10 Chronic lymphocytic leukemia of B-cell type not having achieved remission; Z90.5 Acquired absence of kidney; R91.8 Other nonspecific abnormal finding of lung field; Z79.899 Other long term (current) drug therapy; N83.202 Unspecified ovarian cyst, left side
CPT/HCPCS: 36415; 80053; 83615; 84550; 85025; 85651; 99213

== ENCOUNTER 2025-03-05 10:48 | Oncology outpatient (recurring) (ONCR) | payer MEDICARE, SELFPAY ==
[2025-03-05 11:20] LABS: Reticulocyte % 1.7 % (0.5-2.0)
[2025-03-05 11:22] LABS: Basophils # 0.1 10^3/uL (0.0-0.1); Eosinophils # 0.4 10^3/uL (0.0-0.8); Eosinophils % 0.2 %; Hematocrit 36.1 % (36-47); Lymphocytes % 96.3 %; Mean Corpuscular HGB Conc 29.1 g/dL (30-55); Mean Corpuscular Hemoglobin 29.5 pg (27-33); Mean Corpuscular Volume 101.4 fl (85-98); Mean Platelet Volume 10.4 fL (7.4-10.4); Monocytes # 1.5 10^3/uL (0.2-0.9); Monocytes % 0.7 %; Neutrophils # 5.43 10^3/uL (1.8-7.7); Neutrophils % 2.6 %; Nucleated Red Blood Cells % 0 %; Platelet Count 275 10^3/cmm (157-399); Red Blood Count 3.56 10^6/uL (3.85-5.65)
[2025-03-05 11:25] LABS: Erythrocyte Sedimentation Rate 20 mm/hr (0-15)
[2025-03-05 11:39] LABS: Lymphocytes # 202.7 10^3/uL (0.8-4.8); White Blood Count 210.45 10^3/uL (3.29-11.43)
[2025-03-05 11:42] LABS: Alanine Aminotransferase 17 U/L (0-33); Albumin Level 4.2 g/dL (3.5-5.2); Alkaline Phosphatase 91 U/L (35-105); Aspartate Amino Transferase 17 U/L (0-32); Blood Urea Nitrogen 32 mg/dL (8-23); C Reactive Protein 11.1 mg/L (0.0-4.9); Calcium 9.6 mg/dL (8.5-10.5); Carbon Dioxide 22 mmol/L (22-29); Chloride 103 mmol/L (98-107); Globulin 2.9 g/dL (1.3-4.6); Glucose 107 mg/dL (65-115); Immunoglobulin IGA 83 mg/dL (70-400); Immunoglobulin IGG 794 mg/dL (700-1600); Immunoglobulin IGM 29 mg/dL (40-230); Magnesium 2.2 mg/dL (1.7-2.3); Osmolality Calculated 291 mOsm/kg (285-295); Phosphorus 2.6 mg/dL (2.5-4.5); Sodium 137 mmol/L (136-145); Total Bilirubin 0.2 mg/dL (0.15-1.2); Total Protein 7.1 g/dL (6.6-8.7); Uric Acid 8.3 mg/dL (2.4-5.7)
[2025-03-05 11:43] LABS: Slide Review Slide Review Perform
[2025-03-05 11:48] LABS: Anion Gap 17.2 (5-19); Potassium 5.2 mmol/L (3.5-5.1)
[2025-03-05 11:49] LABS: Lactate Dehydrogenase 177 U/L (135-214)
[2025-03-06 07:00] LABS: PROTEIN, TOTAL 6.5 g/dL (6.1-8.1)
[2025-03-06 21:09] LABS: ALPHA 1 GLOBULIN 0.3 g/dL (0.2-0.3); ALPHA 2 GLOBULIN 0.8 g/dL (0.5-0.9); BETA 1 GLOBULIN 0.4 g/dL (0.4-0.6); BETA 2 GLOBULIN 0.3 g/dL (0.2-0.5); GAMMA GLOBULIN 0.7 g/dL (0.8-1.7)
[2025-03-08 19:29] LABS: Immunofixation Serum Normal pattern.
== END 2025-03-25 23:59 | disposition home or self-care (01) ==
PROVIDERS: PCP Nurse Practitioner Family; Visit Provider Internal Medicine
DX: C64.2 Malignant neoplasm of left kidney, except renal pelvis (principal); C91.10 Chronic lymphocytic leukemia of B-cell type not having achieved remission; Z90.5 Acquired absence of kidney; R91.8 Other nonspecific abnormal finding of lung field; N83.202 Unspecified ovarian cyst, left side; Z79.899 Other long term (current) drug therapy
CPT/HCPCS: 36415; 80053; 82784; 83010; 83615; 83735; 84100; 84155; 84165; 84550; 85025; 85045; 85651; 86140; 86334; 99214

== ENCOUNTER 2025-04-02 13:10 | Oncology outpatient (recurring) (ONCR) | payer MEDICARE, SELFPAY ==
[2025-04-02 13:30] LABS: Basophils # 0.1 10^3/uL (0.0-0.1); Basophils % 0.1 %; Eosinophils # 0.2 10^3/uL (0.0-0.8); Eosinophils % 0.1 %; Hematocrit 38.3 % (36-47); Lymphocytes % 94.6 %; Mean Corpuscular Hemoglobin 30.2 pg (27-33); Mean Corpuscular Volume 100.5 fl (85-98); Monocytes # 1.3 10^3/uL (0.2-0.9); Monocytes % 0.8 %; Neutrophils # 7.04 10^3/uL (1.8-7.7); Neutrophils % 4.2 %; Nucleated Red Blood Cells % 0 %; Platelet Count 276 10^3/cmm (157-399); Red Blood Count 3.81 10^6/uL (3.85-5.65); Red Cell Distribution Width 14.9 % (12.1-15.1)
[2025-04-02 13:49] LABS: Alanine Aminotransferase 9 U/L (0-33); Albumin Level 4.1 g/dL (3.5-5.2); Alkaline Phosphatase 85 U/L (35-105); Anion Gap 20.2 (5-19); Aspartate Amino Transferase 11 U/L (0-32); Blood Urea Nitrogen 36 mg/dL (8-23); Calcium 10.2 mg/dL (8.5-10.5); Carbon Dioxide 21 mmol/L (22-29); Chloride 100 mmol/L (98-107); Creatinine Clr Calc Pharmacy 24.6313; Globulin 3.1 g/dL (1.3-4.6); Glucose 82 mg/dL (65-115); Lactate Dehydrogenase 153 U/L (135-214); Osmolality Calculated 289 mOsm/kg (285-295); Potassium 5.2 mmol/L (3.5-5.1); Sodium 136 mmol/L (136-145); Total Bilirubin 0.2 mg/dL (0.15-1.2); Total Protein 7.2 g/dL (6.6-8.7)
[2025-04-02 13:53] LABS: Lymphocytes # 156.1 10^3/uL (0.8-4.8)
[2025-04-02 13:56] LABS: Slide Review Slide Review Perform
== END 2025-04-25 23:59 | disposition home or self-care (01) ==
PROVIDERS: Nurse Practitioner Family; PCP Nurse Practitioner Family; Visit Provider Internal Medicine
DX: C64.2 Malignant neoplasm of left kidney, except renal pelvis (principal); C91.10 Chronic lymphocytic leukemia of B-cell type not having achieved remission; Z90.5 Acquired absence of kidney; R91.8 Other nonspecific abnormal finding of lung field; N83.202 Unspecified ovarian cyst, left side; Z79.899 Other long term (current) drug therapy; R03.0 Elevated blood-pressure reading, without diagnosis of hypertension
CPT/HCPCS: 36415; 80053; 83615; 85025; 99214

== ENCOUNTER 2025-04-30 12:38 | Oncology outpatient (recurring) (ONCR) | payer MEDICARE, SELFPAY ==
[2025-04-30 13:06] LABS: Basophils # 0.1 10^3/uL (0.0-0.1); Basophils % 0.1 %; Eosinophils # 0.1 10^3/uL (0.0-0.8); Eosinophils % 0.1 %; Lymphocytes % 92.9 %; Mean Corpuscular HGB Conc 30.8 g/dL (30-55); Mean Corpuscular Hemoglobin 30.4 pg (27-33); Mean Corpuscular Volume 98.7 fl (85-98); Mean Platelet Volume 10.2 fL (7.4-10.4); Monocytes % 0.9 %; Neutrophils # 6.18 10^3/uL (1.8-7.7); Neutrophils % 5.8 %; Nucleated Red Blood Cells % 0 %; Platelet Count 268 10^3/cmm (157-399); Red Blood Count 3.85 10^6/uL (3.85-5.65); Red Cell Distribution Width 14.1 % (12.1-15.1)
[2025-04-30 13:29] LABS: Alanine Aminotransferase 12 U/L (0-33); Albumin Level 4.3 g/dL (3.5-5.2); Alkaline Phosphatase 97 U/L (35-105); Anion Gap 18.8 (5-19); Aspartate Amino Transferase 12 U/L (0-32); Blood Urea Nitrogen 29 mg/dL (8-23); Carbon Dioxide 23 mmol/L (22-29); Chloride 103 mmol/L (98-107); Globulin 2.8 g/dL (1.3-4.6); Glucose 133 mg/dL (65-115); Lactate Dehydrogenase 146 U/L (135-214); Osmolality Calculated 298 mOsm/kg (285-295); Potassium 4.8 mmol/L (3.5-5.1); Sodium 140 mmol/L (136-145); Total Bilirubin 0.2 mg/dL (0.15-1.2); Total Protein 7.1 g/dL (6.6-8.7)
[2025-04-30 13:33] LABS: White Blood Count 106.58 10^3/uL (3.29-11.43)
[2025-04-30 13:36] LABS: Slide Review Slide Review Perform
== END 2025-05-25 23:59 | disposition home or self-care (01) ==
PROVIDERS: Nurse Practitioner Family; PCP Nurse Practitioner Family; Visit Provider Nurse Practitioner
DX: C91.10 Chronic lymphocytic leukemia of B-cell type not having achieved remission (principal); C64.2 Malignant neoplasm of left kidney, except renal pelvis; R03.0 Elevated blood-pressure reading, without diagnosis of hypertension; N18.9 Chronic kidney disease, unspecified; Z79.899 Other long term (current) drug therapy
CPT/HCPCS: 36415; 80053; 83615; 85025; 99214

== ENCOUNTER 2025-05-28 12:14 | Oncology outpatient (recurring) (ONCR) | payer MEDICARE, SELFPAY ==
[2025-05-28 13:02] LABS: Hematocrit 39.4 % (36-47); Hemoglobin 12.10 g/dL (11.27-16.99); Mean Corpuscular HGB Conc 30.7 g/dL (30-55); Mean Corpuscular Hemoglobin 30.2 pg (27-33); Mean Corpuscular Volume 98.3 fl (85-98); Nucleated Red Blood Cells % 0 %; Platelet Count 283 10^3/cmm (157-399); Red Blood Count 4.01 10^6/uL (3.85-5.65)
[2025-05-28 13:20] LABS: Alanine Aminotransferase 14 U/L (0-33); Albumin Level 4.3 g/dL (3.5-5.2); Alkaline Phosphatase 92 U/L (35-105); Anion Gap 19.2 (5-19); Aspartate Amino Transferase 14 U/L (0-32); Blood Urea Nitrogen 33 mg/dL (8-23); Calcium 10.0 mg/dL (8.5-10.5); Carbon Dioxide 21 mmol/L (22-29); Chloride 102 mmol/L (98-107); Globulin 2.8 g/dL (1.3-4.6); Glucose 76 mg/dL (65-115); Osmolality Calculated 290 mOsm/kg (285-295); Potassium 5.2 mmol/L (3.5-5.1); Sodium 137 mmol/L (136-145); Total Protein 7.1 g/dL (6.6-8.7); Uric Acid 8.4 mg/dL (2.4-5.7)
[2025-05-28 13:46] LABS: White Blood Count 80.60 10^3/uL (3.29-11.43)
[2025-05-28 13:47] LABS: Slide Review Slide Review Perform
== END 2025-06-25 23:59 | disposition home or self-care (01) ==
PROVIDERS: Internal Medicine; PCP Nurse Practitioner Family; Visit Provider Nurse Practitioner
DX: C91.10 Chronic lymphocytic leukemia of B-cell type not having achieved remission (principal); Z85.520 Personal history of malignant carcinoid tumor of kidney; N18.9 Chronic kidney disease, unspecified; Z90.5 Acquired absence of kidney; R91.8 Other nonspecific abnormal finding of lung field; Z79.899 Other long term (current) drug therapy
CPT/HCPCS: 36415; 80053; 83615; 84550; 85025; 85651; 99213

== ENCOUNTER 2025-07-09 10:42 | Oncology outpatient (recurring) (ONCR) | payer MEDICARE, SELFPAY ==
[2025-07-09 11:03] LABS: Hematocrit 38.8 % (36-47); Hemoglobin 12.50 g/dL (11.27-16.99); Mean Corpuscular HGB Conc 32.2 g/dL (30-55); Mean Corpuscular Hemoglobin 30.9 pg (27-33); Mean Corpuscular Volume 95.8 fl (85-98); Nucleated Red Blood Cells % 0 %; Platelet Count 280 10^3/cmm (157-399); Red Blood Count 4.05 10^6/uL (3.85-5.65)
[2025-07-09 11:11] LABS: White Blood Count 56.27 10^3/uL (3.29-11.43)
[2025-07-09 11:14] LABS: Alanine Aminotransferase 13 U/L (0-33); Albumin Level 4.3 g/dL (3.5-5.2); Alkaline Phosphatase 96 U/L (35-105); Anion Gap 18.7 (5-19); Aspartate Amino Transferase 15 U/L (0-32); Blood Urea Nitrogen 36 mg/dL (8-23); Calcium 10.6 mg/dL (8.5-10.5); Carbon Dioxide 24 mmol/L (22-29); Chloride 101 mmol/L (98-107); Globulin 3.0 g/dL (1.3-4.6); Glucose 88 mg/dL (65-115); Osmolality Calculated 296 mOsm/kg (285-295); Potassium 4.7 mmol/L (3.5-5.1); Sodium 139 mmol/L (136-145); Total Protein 7.3 g/dL (6.6-8.7); Uric Acid 9.1 mg/dL (2.4-5.7)
== END 2025-07-26 23:59 | disposition home or self-care (01) ==
PROVIDERS: Internal Medicine; PCP Nurse Practitioner Family; Visit Provider Nurse Practitioner
DX: C91.10 Chronic lymphocytic leukemia of B-cell type not having achieved remission (principal); R91.8 Other nonspecific abnormal finding of lung field; N18.9 Chronic kidney disease, unspecified; Z85.528 Personal history of other malignant neoplasm of kidney; Z87.891 Personal history of nicotine dependence; Z79.899 Other long term (current) drug therapy; Z90.5 Acquired absence of kidney
CPT/HCPCS: 36415; 80053; 83615; 84100; 84550; 85025; 99213

== ENCOUNTER 2025-08-25 09:39 | Oncology outpatient (recurring) (ONCR) | payer MEDICARE, SELFPAY ==
[2025-08-25 09:58] LABS: Hematocrit 37.3 % (36-47); Hemoglobin 11.90 g/dL (11.27-16.99); Mean Corpuscular HGB Conc 31.9 g/dL (30-55); Mean Corpuscular Hemoglobin 30.4 pg (27-33); Mean Corpuscular Volume 95.2 fl (85-98); Platelet Count 264 10^3/cmm (157-399); Red Blood Count 3.92 10^6/uL (3.85-5.65)
[2025-08-25 10:19] LABS: Alanine Aminotransferase 13 U/L (0-33); Albumin Level 4.2 g/dL (3.5-5.2); Alkaline Phosphatase 94 U/L (35-105); Anion Gap 16.4 (5-19); Aspartate Amino Transferase 14 U/L (0-32); Blood Urea Nitrogen 25 mg/dL (8-23); Calcium 10.2 mg/dL (8.5-10.5); Carbon Dioxide 24 mmol/L (22-29); Chloride 101 mmol/L (98-107); Globulin 2.7 g/dL (1.3-4.6); Glucose 149 mg/dL (65-115); Osmolality Calculated 291 mOsm/kg (285-295); Potassium 4.4 mmol/L (3.5-5.1); Sodium 137 mmol/L (136-145); Total Protein 6.9 g/dL (6.6-8.7); Uric Acid 7.9 mg/dL (2.4-5.7)
[2025-08-25 10:22] LABS: Slide Review Slide Review Perform; White Blood Count 40.68 10^3/uL (3.29-11.43)
[2025-08-25 10:23] LABS: Absolute Segmented Neutrophil 4.1 10/cmm (1.6-7.1); Atypical Lymphs 28.0 % (0-5); Band Neutrophils Absolute 0.0 10^3/cmm (0.0-1.2); Total Cells Counted 100 (0-100)
== END 2025-08-25 23:59 | disposition home or self-care (01) ==
PROVIDERS: Nurse Practitioner Family; PCP Nurse Practitioner Family; Visit Provider Nurse Practitioner
DX: C91.10 Chronic lymphocytic leukemia of B-cell type not having achieved remission (principal); R91.8 Other nonspecific abnormal finding of lung field; N18.9 Chronic kidney disease, unspecified; Z85.528 Personal history of other malignant neoplasm of kidney; Z87.891 Personal history of nicotine dependence; Z79.899 Other long term (current) drug therapy; Z90.5 Acquired absence of kidney
CPT/HCPCS: 36415; 80053; 83615; 84100; 84550; 85007; 85025; 99214

== ENCOUNTER → 2025-09-14 09:41 | Outpatient (BNVA) | payer MEDICARE, SELFPAY | PROVIDERS: PCP Nurse Practitioner Family; Visit Provider Nurse Practitioner Family | DX: C91.10 Chronic lymphocytic leukemia of B-cell type not having achieved remission (principal) | CPT/HCPCS: 80053; 83615; 84100; 84550; 85025 ==

== ENCOUNTER 2025-10-06 09:17 | Oncology outpatient (recurring) (ONCR) | payer MEDICARE, SELFPAY ==
[2025-10-06 09:55] LABS: Hematocrit 37.5 % (36-47); Hemoglobin 12.10 g/dL (11.27-16.99); Mean Corpuscular HGB Conc 32.3 g/dL (30-55); Mean Corpuscular Hemoglobin 31.6 pg (27-33); Mean Corpuscular Volume 97.9 fl (85-98); Nucleated Red Blood Cells % 0 %; Platelet Count 256 10^3/cmm (157-399); Red Blood Count 3.83 10^6/uL (3.85-5.65)
[2025-10-06 10:12] LABS: Alanine Aminotransferase 11 U/L (0-33); Albumin Level 4.1 g/dL (3.5-5.2); Alkaline Phosphatase 92 U/L (35-105); Anion Gap 17.4 (5-19); Aspartate Amino Transferase 14 U/L (0-32); Blood Urea Nitrogen 41 mg/dL (8-23); Calcium 10.0 mg/dL (8.5-10.5); Carbon Dioxide 22 mmol/L (22-29); Chloride 100 mmol/L (98-107); Globulin 2.8 g/dL (1.3-4.6); Glucose 188 mg/dL (65-115); Osmolality Calculated 295 mOsm/kg (285-295); Potassium 4.4 mmol/L (3.5-5.1); Sodium 135 mmol/L (136-145); Total Protein 6.9 g/dL (6.6-8.7); Uric Acid 8.7 mg/dL (2.4-5.7)
[2025-10-06 10:26] LABS: White Blood Count 34.08 10^3/uL (3.29-11.43)
[2025-10-06 10:30] LABS: Slide Review Slide Review Perform
[2025-10-07 08:04] LABS: PROTEIN, TOTAL 6.4 g/dL (6.1-8.1)
[2025-10-08 09:56] LABS: ALPHA 1 GLOBULIN 0.3 g/dL (0.2-0.3); ALPHA 2 GLOBULIN 0.8 g/dL (0.5-0.9); BETA 1 GLOBULIN 0.4 g/dL (0.4-0.6); BETA 2 GLOBULIN 0.4 g/dL (0.2-0.5)
== END 2025-10-25 23:59 | disposition home or self-care (01) ==
PROVIDERS: Internal Medicine; PCP Nurse Practitioner Family; Visit Provider Nurse Practitioner
DX: C91.10 Chronic lymphocytic leukemia of B-cell type not having achieved remission (principal); C64.2 Malignant neoplasm of left kidney, except renal pelvis; R91.8 Other nonspecific abnormal finding of lung field; N18.9 Chronic kidney disease, unspecified; Z87.891 Personal history of nicotine dependence; Z79.899 Other long term (current) drug therapy; Z90.5 Acquired absence of kidney
CPT/HCPCS: 36415; 80053; 82784; 83010; 83615; 84100; 84155; 84165; 84550; 85025; 85651; 86334; 86880; 99214

== ENCOUNTER → 2025-10-19 14:28 | Outpatient (BNVA) | payer MEDICARE, SELFPAY | PROVIDERS: PCP Nurse Practitioner Family; Visit Provider Nurse Practitioner Family | DX: N39.0 Urinary tract infection, site not specified (principal) | CPT/HCPCS: 81000; 87086 ==

== ENCOUNTER 2025-11-17 09:50 | Oncology outpatient (recurring) (ONCR) | payer MEDICARE, SELFPAY ==
[2025-11-17 10:37] LABS: Hematocrit 36.9 % (36-47); Hemoglobin 11.60 g/dL (11.27-16.99); Mean Corpuscular HGB Conc 31.4 g/dL (30-55); Mean Corpuscular Hemoglobin 30.8 pg (27-33); Mean Corpuscular Volume 97.9 fl (85-98); Nucleated Red Blood Cells % 0 %; Platelet Count 301 10^3/cmm (157-399); Red Blood Count 3.77 10^6/uL (3.85-5.65)
[2025-11-17 11:00] LABS: Alanine Aminotransferase 15 U/L (0-33); Albumin Level 4.0 g/dL (3.5-5.2); Alkaline Phosphatase 89 U/L (35-105); Anion Gap 19.1 (5-19); Aspartate Amino Transferase 13 U/L (0-32); Blood Urea Nitrogen 39 mg/dL (8-23); Calcium 10.9 mg/dL (8.5-10.5); Carbon Dioxide 20 mmol/L (22-29); Chloride 101 mmol/L (98-107); Globulin 2.8 g/dL (1.3-4.6); Glucose 111 mg/dL (65-115); Osmolality Calculated 290 mOsm/kg (285-295); Potassium 5.1 mmol/L (3.5-5.1); Sodium 135 mmol/L (136-145); Total Protein 6.8 g/dL (6.6-8.7)
[2025-11-17 11:11] LABS: Slide Review Slide Review Perform; White Blood Count 31.95 10^3/uL (3.29-11.43)
== END 2025-11-25 23:59 | disposition home or self-care (01) ==
PROVIDERS: Nurse Practitioner Family; PCP Nurse Practitioner Family; Visit Provider Nurse Practitioner
DX: C91.10 Chronic lymphocytic leukemia of B-cell type not having achieved remission (principal); C64.2 Malignant neoplasm of left kidney, except renal pelvis; N28.9 Disorder of kidney and ureter, unspecified; E11.9 Type 2 diabetes mellitus without complications; R91.1 Solitary pulmonary nodule; Z87.891 Personal history of nicotine dependence; Z79.899 Other long term (current) drug therapy; Z90.5 Acquired absence of kidney
CPT/HCPCS: 36415; 80053; 83615; 85025; 99214

== ENCOUNTER → 2025-11-24 09:23 | Outpatient (BNVA) | payer MEDICARE, SELFPAY | PROVIDERS: PCP Nurse Practitioner Family; Visit Provider Nurse Practitioner Family | DX: E11.9 Type 2 diabetes mellitus without complications (principal) | CPT/HCPCS: 83036 ==